=== PATIENT | male | born 1970 | race Two or more races ===

== ENCOUNTER 2020-08-14 16:54 | Inpatient (IN) | payer MEDICAID, OTHER ==
[~2020-08-14] VITALS: Ht 167.6 cm; Wt 173.2 kg
[2020-08-14] MEDS ORDERED: SODIUM CHLORIDE 0.9% 1,000 ML IVB ONE (18:15)
[2020-08-14] MEDS ORDERED: ASCORBIC ACID 500 MG TAB PO ONE (18:15)
[2020-08-14] MEDS ORDERED: ZINC SULFATE 220mg CAP or TAB PO ONE (18:15)
[2020-08-14] MEDS ORDERED: AZITHROMYCIN 500MG/ 250ML 250 ML IV ONE (18:15)
[2020-08-14 21:01] LABS: Basophils # (auto) 0 10 ^3/uL (0-0.2); Basophils % (auto) 0.3 % (0.0-2.0); Eosinophils # (auto) 0 10 ^3/uL (0-0.8); Eosinophils % (auto) 0.1 % (0.0-7.0); Hematocrit 42.1 % (41.0-53.0); Hemoglobin 13.9 g/dL (13.5-17.5); Lymphocytes # (auto) 1.4 10 ^3/uL (0.4-5.4); Lymphocytes % (auto) 32.2 % (10.0-50.0); Mean Corpuscular Volume 84.9 fL (80.0-100.0); Monocytes # (auto) 0.3 10 ^3/uL (0-1.3); Monocytes % (auto) 7.5 % (0.0-12.0); Neutrophils # (auto) 2.7 10 ^3/uL (1.6-8.6); Neutrophils % (auto) 59.9 % (37.0-80.0); Nucleated Red Blood Cells % 0.1 %; Platelet Count (auto) 180 10^3/uL (140-450); Red Blood Cells 4.96 10^6/uL (4.5-5.90); White Blood Cell 4.5 10^3/uL (4.4-10.8)
[2020-08-14 21:16] LABS: INR 0.95 (0.9-1.15); Partial Thromboplastin Time 27.4 sec (23.0-31.2)
[2020-08-14 21:26] LABS: BUN/Creatinine Ratio 13.1; Calcium 7.9 mg/dL (8.5-10.1); Potassium 3.6 mmol/L (3.5-5.1)
[2020-08-14 21:29] LABS: Bilirubin, Total 0.4 mg/dL (0.2-1.0); Total Protein 7.8 g/dL (6.4-8.2)
[2020-08-14 21:31] LABS: Lactic Acid w/Reflex 2.4 mmol/L (0.4-2.0)
[2020-08-14] MEDS ORDERED: ACETAMINOPHEN 325 MG TAB PO PRN (23:00)
[2020-08-14] MEDS ORDERED: ONDANSETRON HCL 4 MG/2 ML VIAL IV PRN (23:00)
--- NOTE | 2020-08-14 23:59 | NUR ---
MS admit from ER CONSUELO GUTHRIE admitted to tele/MS. No SBAR received from ED. Patient oriented to KASSIE RUIZ, RN primary RN, MST unit, room 234, and unit policies regarding patient care and visiting hours. Patient weighed by bed scale and encouraged to call if they need something. All questions and concerns addressed, patient verbalized understanding. PATIENT ON 2L OF OXYGEN VIA NC WITH EVNE AND UNLABORED RESPIRATIONS, NO S/S OF DISTRESS SOB OR PAIN. PATIENT ABLE TO AMBULATE INDEPENDENTLY, BED IN LOWEST LOCKED POSITION, SIDE RAILS UP X2, AND CALL LIGHT WITHIN REACH. WILL CONTINUE TO MONITOR Q1HR PRN.
[2020-08-15] VITALS (7 sets, daily range): BP systolic 101–151; BP diastolic 64–89
[2020-08-15] MEDS ORDERED: METF-370 PO (02:23)
[2020-08-15] MEDS: ALBUTEROL SULF HFA 90MCG INH 200DOSE IN SCH ×3 (06:00→21:53)
[2020-08-15] MEDS: BUDESONIDE (INHALATION) 180 MCG IH IN SCH ×2 (06:21→21:53)
[2020-08-15 06:42] LABS: Basophils # (auto) 0 10 ^3/uL (0-0.2); Basophils % (auto) 0.5 % (0.0-2.0); Eosinophils # (auto) 0 10 ^3/uL (0-0.8); Eosinophils % (auto) 0.1 % (0.0-7.0); Hematocrit 39.7 % (41.0-53.0); Hemoglobin 13.1 g/dL (13.5-17.5); Lymphocytes # (auto) 1.3 10 ^3/uL (0.4-5.4); Lymphocytes % (auto) 29.4 % (10.0-50.0); Mean Corpuscular Hemoglobin 27.8 pg (28.0-32.0); Mean Corpuscular Hgb Conc. 32.9 g/dL (32.0-36.0); Mean Corpuscular Volume 84.4 fL (80.0-100.0); Monocytes # (auto) 0.3 10 ^3/uL (0-1.3); Monocytes % (auto) 7.3 % (0.0-12.0); Neutrophils # (auto) 2.9 10 ^3/uL (1.6-8.6); Neutrophils % (auto) 62.7 % (37.0-80.0); Nucleated Red Blood Cells % 0.1 %; Platelet Count (auto) 163 10^3/uL (140-450); Red Blood Cells 4.71 10^6/uL (4.5-5.90); Red Cell Distribution Width 14.5 % (11.8-14.3); White Blood Cell 4.6 10^3/uL (4.4-10.8)
[2020-08-15 06:48] LABS: Albumin 2.7 g/dL (3.4-5.0); Calcium 7.8 mg/dL (8.5-10.1); Magnesium 2.2 mg/dL (1.6-2.6)
[2020-08-15 06:51] LABS: BUN/Creatinine Ratio 11.7; Bilirubin, Total 0.3 mg/dL (0.2-1.0); Phosphorus 3.3 mg/dL (2.5-4.90); Total Protein 6.9 g/dL (6.4-8.2)
[2020-08-15] MEDS ORDERED: ACCU-CHEK COMFORT CURVE STRIP VI ONE (07:00)
[2020-08-15] MEDS ORDERED: InsuLIN REG 1unit/0.01ml Soln (100units/ml) SC ONE (07:00)
[2020-08-15] MEDS: ZINC SULFATE 220mg CAP or TAB PO SCH (09:53)
[2020-08-15] MEDS: DexAMETHasone SOD PHOS 10MG/1ML VIAL INJ IV SCH (09:53)
[2020-08-15] MEDS: cefTRIAXone 1GM/50ML D5W 50 ML IV SCH (09:53)
[2020-08-15] MEDS: ENOXAPARIN SOD 40 MG/0.4 ML SYRINGE SC SCH (09:54)
[2020-08-15] MEDS: ASCORBIC ACID 500 MG TAB PO SCH (09:54)
[2020-08-15] MEDS ORDERED: DEXTROSE (50%) 50ML SYRG IV PRN (10:00)
--- NOTE | 2020-08-15 10:00 | NUR ---
Dr Rosenthal bedside with patient discussing plan of care. Orders received and carried out
--- NOTE | 2020-08-15 10:05 | NUR ---
Orders received from Dr Rosenthal to have patients CPAP pressure changed to 15 from 17. (Per patients request, 15 is his home setting) Spoke to RT who will update order.
--- NOTE | 2020-08-15 10:13 | NUR ---
Per Dr Rosenthal, patient also changed to tele from m/s. Order carried out
[2020-08-15] MEDS ORDERED: NITROGLYCERIN 0.4 MG SL TAB SL PRN ×2 (10:15)
[2020-08-15] MEDS ORDERED: MORPHINE SULF INJ 2 MG/ML SYRINGE 1ML IV PRN ×2 (10:15)
[2020-08-15] MEDS: ACCU-CHEK COMFORT CURVE STRIP VI SCH ×3 (12:00→22:19)
[2020-08-15] MEDS: InsuLIN REG 1unit/0.01ml Soln (100units/ml) SC SCH ×3 (12:01→22:21)
--- NOTE | 2020-08-15 12:30 | NUR ---
PAIN Patient reports back pain 3/10. Per patient, he does not want any pain medication at this time. Patient repositioned for comfort.
[2020-08-15] MEDS: SODIUM CHLOR 0.9% PF (SALINE LOCK) 10ML VIAL/SYR IV SCH ×2 (14:10→22:19)
--- NOTE | 2020-08-15 16:34 | NUR ---
Received orders from Dr Rosenthal for pain medication. Order carried out as received.
[2020-08-15] MEDS: ACETAMINOPHEN 325 MG TAB PO PRN (16:42)
[2020-08-15] MEDS: AZITHROMYCIN 500MG/ 250ML 250 ML IV SCH (17:45)
--- NOTE | 2020-08-15 20:09 | NUR ---
open note assumed care of pt upon entering room pt sitting in chair with 4L nc no distress noted or expressed. pt denies any pain. pt oriented to this nurse, updated on plan of care. pt has cpap at bedside, this nurse to page respiratory when pt is ready for bed. pt bed locked, low and 2x rails up. call light in reach, pt encouraged to call as needed. this nurse to round q1hr and prn.
--- NOTE | 2020-08-15 22:57 | NUR ---
PT RINSED OUT HIS MOUTH POST PULMICORT TX Addendum: 08/15/20 at 2257 by JANA RAMIRES RT Amended: Links added.
--- NOTE | 2020-08-15 23:53 | NUR ---
dr aldana at bedside, spoke with patient about remdesivir, to which patient agreed and this nurse received orders.
[2020-08-16 05:02] VITALS: BP 130/77
[2020-08-16 05:58] LABS: Basophils # (auto) 0 10 ^3/uL (0-0.2); Basophils % (auto) 0.1 % (0.0-2.0); Eosinophils # (auto) 0 10 ^3/uL (0-0.8); Hematocrit 40.7 % (41.0-53.0); Hemoglobin 13.3 g/dL (13.5-17.5); Lymphocytes # (auto) 0.9 10 ^3/uL (0.4-5.4); Lymphocytes % (auto) 14.8 % (10.0-50.0); Mean Corpuscular Hemoglobin 27.6 pg (28.0-32.0); Mean Corpuscular Hgb Conc. 32.7 g/dL (32.0-36.0); Mean Corpuscular Volume 84.3 fL (80.0-100.0); Monocytes # (auto) 0.4 10 ^3/uL (0-1.3); Monocytes % (auto) 6.5 % (0.0-12.0); Neutrophils # (auto) 4.8 10 ^3/uL (1.6-8.6); Neutrophils % (auto) 78.6 % (37.0-80.0); Nucleated Red Blood Cells % 0.1 %; Platelet Count (auto) 181 10^3/uL (140-450); Red Blood Cells 4.83 10^6/uL (4.5-5.90); Red Cell Distribution Width 14.8 % (11.8-14.3); White Blood Cell 6.1 10^3/uL (4.4-10.8)
[2020-08-16 06:34] LABS: BUN/Creatinine Ratio 12.8; Calcium 8.3 mg/dL (8.5-10.1); Magnesium 2.6 mg/dL (1.6-2.6)
[2020-08-16 06:43] LABS: CRP High Sensitivity 9.59 mg/dL (< 0.3)
[2020-08-16] MEDS: ACCU-CHEK COMFORT CURVE STRIP VI SCH ×4 (06:44→22:04)
[2020-08-16] MEDS: SODIUM CHLOR 0.9% PF (SALINE LOCK) 10ML VIAL/SYR IV SCH ×3 (06:44→22:01)
[2020-08-16] MEDS: InsuLIN REG 1unit/0.01ml Soln (100units/ml) SC SCH ×4 (06:48→22:03)
[2020-08-16] MEDS: ALBUTEROL SULF HFA 90MCG INH 200DOSE IN SCH ×3 (07:28→21:28)
[2020-08-16] MEDS: BUDESONIDE (INHALATION) 180 MCG IH IN SCH ×2 (07:28→21:28)
--- NOTE | 2020-08-16 07:37 | NUR ---
Opening Shift Note Assumed care of patient, awake and alert. No S/S of distress, SOB with activity, denies pain. Instructed on POC and to call for assist PRN, will continue to monitor for changes Q1hr and PRN.
[2020-08-16 09:00] VITALS: BP 147/81
[2020-08-16] MEDS: cefTRIAXone 1GM/50ML D5W 50 ML IV SCH (09:48)
[2020-08-16] MEDS: DexAMETHasone SOD PHOS 10MG/1ML VIAL INJ IV SCH (09:48)
[2020-08-16] MEDS: ZINC SULFATE 220mg CAP or TAB PO SCH (09:48)
[2020-08-16] MEDS: ENOXAPARIN SOD 40 MG/0.4 ML SYRINGE SC SCH (09:49)
[2020-08-16] MEDS: ASCORBIC ACID 500 MG TAB PO SCH (09:49)
[2020-08-16] MEDS ORDERED: PATIENTS OWN MEDICATION PO SCH (10:00)
[2020-08-16 13:00] VITALS: BP_SYST 119; BP_SYST 138; BP_DIAS 75; BP_DIAS 82
[2020-08-16 17:00] VITALS: BP 131/83
[2020-08-16] MEDS ORDERED: REMDESIVIR 200 MG in NS 210ml LOADING DOSE ADULT IV ONE (17:00)
[2020-08-16] MEDS: AZITHROMYCIN 500MG/ 250ML 250 ML IV SCH (17:01)
--- NOTE | 2020-08-16 17:02 | NUR ---
Remdesivir started, vs stable bp 138/82, p 97, reports feeling well, labs verified, will continue to monitor.
--- NOTE | 2020-08-16 19:30 | NUR ---
Opening Shift Note Received report from ana cristina Villegas RN. Assumed care of patient, awake and alert. No S/S of distress/SOB or pain. Patient on 4LNC saturating at 90%. Instructed on POC and to call for assist PRN, will continue to monitor for changes Q1hr and PRN. Bed placed in lowest position and call light within reach.
[2020-08-16 22:00] VITALS: BP 125/74
--- NOTE | 2020-08-17 03:00 | NUR ---
Patient got up and went to the bathroom and desats to 78%. Adjusted oxygen level to 6LNC and oxygen saturation went up to 89% Will monitor. Patient is also c/o chills. Temp check is 98.6. Will monitor
[2020-08-17] MEDS: ACETAMINOPHEN 325 MG TAB PO PRN ×3 (03:15→22:24)
--- NOTE | 2020-08-17 03:15 | NUR ---
Given Tylenol per request for generalized discomfort.
--- NOTE | 2020-08-17 03:45 | NUR ---
Patient's temp is 100.7. Tylenol given at 0315. Will monitor
--- NOTE | 2020-08-17 04:50 | NUR ---
Patient's temperature is 98.9. Patient is sitting at bedside on 6LNC saturating at 92%. Patient denies pain and states he is feeling better.
[2020-08-17 05:00] VITALS: BP 104/65
[2020-08-17] MEDS: BUDESONIDE (INHALATION) 180 MCG IH IN SCH ×2 (05:46→22:18)
[2020-08-17] MEDS: ALBUTEROL SULF HFA 90MCG INH 200DOSE IN SCH ×3 (05:46→22:18)
[2020-08-17] MEDS: SODIUM CHLOR 0.9% PF (SALINE LOCK) 10ML VIAL/SYR IV SCH ×3 (06:26→22:27)
[2020-08-17] MEDS: ACCU-CHEK COMFORT CURVE STRIP VI SCH ×4 (06:27→22:24)
[2020-08-17] MEDS: InsuLIN REG 1unit/0.01ml Soln (100units/ml) SC SCH ×4 (06:33→22:26)
--- NOTE | 2020-08-17 07:12 | NUR ---
Report given to ana cristina Villegas RN. Patient is resting in bed alert and awake. No distress noted, on 7LNC saturating at 90%, RT aware.
--- NOTE | 2020-08-17 07:34 | NUR ---
Opening Shift Note Assumed care of patient, awake and alert. No S/S of distress, SOB with activity, remains on 7l, denies pain. Instructed on POC and to call for assist PRN, will continue to monitor for changes Q1hr and PRN.
[2020-08-17 09:11] VITALS: BP 132/83
[2020-08-17] MEDS: cefTRIAXone 1GM/50ML D5W 50 ML IV SCH (10:02)
[2020-08-17] MEDS: DexAMETHasone SOD PHOS 10MG/1ML VIAL INJ IV SCH (10:02)
[2020-08-17] MEDS: CHOLECALCIFEROL (VITD3) 2,000 UNIT CAP PO SCH (10:02)
[2020-08-17] MEDS: ASCORBIC ACID 500 MG TAB PO SCH (10:02)
[2020-08-17] MEDS: ZINC SULFATE 220mg CAP or TAB PO SCH (10:02)
[2020-08-17] MEDS: ENOXAPARIN SOD 40 MG/0.4 ML SYRINGE SC SCH (10:03)
[2020-08-17 13:00] VITALS: BP 128/76
[2020-08-17 17:00] VITALS: BP_SYST 138; BP_SYST 156; BP_DIAS 76; BP_DIAS 89
[2020-08-17] MEDS: REMDESIVIR 100mg in NS 230ml DAILYx4DAYS (NO VENT) IV SCH (18:13)
[2020-08-17] MEDS: AZITHROMYCIN 500MG/ 250ML 250 ML IV SCH (18:16)
[2020-08-17 18:49] VITALS: BP 138/76
--- NOTE | 2020-08-17 19:30 | NUR ---
Opening Shift Note Received report from ana cristina Villegas RN. Assumed care of patient, awake and alert. No S/S of distress/SOB or pain. On 9L Oxymizer saturating at 90% Instructed on POC and to call for assist PRN, will continue to monitor for changes Q1hr and PRN. Bed placed in lowest position and call light within reach.
[2020-08-17 22:00] VITALS: BP 139/78
--- NOTE | 2020-08-17 22:18 | NUR ---
Respiratory note: PT DOES NOT WANT TO PUT CPAP ON AT THIS TIME, PT SITTING IN CHAIR
[2020-08-18 05:00] VITALS: BP 126/78
[2020-08-18] MEDS: ACCU-CHEK COMFORT CURVE STRIP VI SCH ×4 (06:34→23:45)
[2020-08-18] MEDS: SODIUM CHLOR 0.9% PF (SALINE LOCK) 10ML VIAL/SYR IV SCH ×3 (06:34→23:45)
[2020-08-18] MEDS: InsuLIN REG 1unit/0.01ml Soln (100units/ml) SC SCH ×4 (06:36→23:47)
[2020-08-18 06:45] LABS: Basophils # (auto) 0 10 ^3/uL (0-0.2); Basophils % (auto) 0.1 % (0.0-2.0); Eosinophils # (auto) 0 10 ^3/uL (0-0.8); Hematocrit 42.9 % (41.0-53.0); Hemoglobin 14.2 g/dL (13.5-17.5); Lymphocytes # (auto) 0.8 10 ^3/uL (0.4-5.4); Lymphocytes % (auto) 8.5 % (10.0-50.0); Mean Corpuscular Hemoglobin 27.6 pg (28.0-32.0); Mean Corpuscular Volume 83.7 fL (80.0-100.0); Monocytes # (auto) 0.3 10 ^3/uL (0-1.3); Monocytes % (auto) 3.1 % (0.0-12.0); Neutrophils # (auto) 8.2 10 ^3/uL (1.6-8.6); Neutrophils % (auto) 88.3 % (37.0-80.0); Platelet Count (auto) 252 10^3/uL (140-450); Red Blood Cells 5.13 10^6/uL (4.5-5.90); Red Cell Distribution Width 14.9 % (11.8-14.3); White Blood Cell 9.3 10^3/uL (4.4-10.8)
[2020-08-18] MEDS: ALBUTEROL SULF HFA 90MCG INH 200DOSE IN SCH ×3 (07:00→20:35)
[2020-08-18] MEDS: BUDESONIDE (INHALATION) 180 MCG IH IN SCH ×2 (07:00→20:35)
--- NOTE | 2020-08-18 07:00 | NUR ---
Patient is resting on the chair on 13L Oxymizer saturating at 90%. Blood sugar is 247mg/dl covered with 6 units of reg insulin. No distress noted at this time and patient denies pain.
--- NOTE | 2020-08-18 07:05 | NUR ---
Respiratory note: RT AT BEDSIDE FOR ASSESSMENT. PT ALREADY OFF CPAP, SAYS HE TOOK IT OFF AROUND 0630. PT IS SITTING UP IN CHAIR WEARING 15LPM OXYMIZER, HR 85, RR 22, SPO2 90%. ADMINISTERED MDI THERAPY, NO ADVERSE REACTIONS. PT SAYS HE IS FEELING OK AT THIS TIME. ADVISED PT TO CALL FOR RT OR NURSE WITH CALL LIGHT IF NEEDED.
[2020-08-18 07:29] LABS: Potassium 4.1 mmol/L (3.5-5.1)
--- NOTE | 2020-08-18 07:30 | NUR ---
Opening note Assumed care of patient from NOC RN. Patient is AOx4, sitting up in chair, no s/s of distress noted. Patient noted to be on 15 L Oxymizer, no s/s of sob noted. Updated patient on plan of care and patient verbalized understanding. Will continue to monitor.
[2020-08-18 07:40] LABS: BUN/Creatinine Ratio 17.6; Calcium 8.7 mg/dL (8.5-10.1); Magnesium 2.5 mg/dL (1.6-2.6)
[2020-08-18] MEDS: DexAMETHasone SOD PHOS 10MG/1ML VIAL INJ IV SCH (08:30)
[2020-08-18] MEDS: cefTRIAXone 1GM/50ML D5W 50 ML IV SCH (08:30)
[2020-08-18] MEDS: ZINC SULFATE 220mg CAP or TAB PO SCH (08:31)
[2020-08-18] MEDS: ASCORBIC ACID 500 MG TAB PO SCH (08:31)
[2020-08-18] MEDS: CHOLECALCIFEROL (VITD3) 2,000 UNIT CAP PO SCH (08:31)
[2020-08-18] MEDS: ENOXAPARIN SOD 40 MG/0.4 ML SYRINGE SC SCH (08:32)
[2020-08-18] MEDS: HYDROcodone-ACET 5/325MG TAB PO PRN (08:32)
--- NOTE | 2020-08-18 08:40 | NUR ---
O2 patient placed on 15l O2 via non-rebreather. Patient sitting at chair, no s/s of SOB or distress noted. Will notify .
--- NOTE | 2020-08-18 08:55 | NUR ---
Jaxson Rosenthal regarding patient o2 requirements. Left message and awaiting call back.
[2020-08-18 09:00] VITALS: BP 145/81
--- NOTE | 2020-08-18 09:00 | NUR ---
Physician rounding Dr. Kennedy at bedside. updated patient on plan of care and educated patient on convalescent plasma and patient verbalized understanding. New orders received, will follow through.
[2020-08-18 09:05] LABS: CRP High Sensitivity 18.7 mg/dL (< 0.3)
--- NOTE | 2020-08-18 12:29 | NUR ---
Nutrition Assessment Est energy needs 9133-1102 kcal (25-30 kcal/kg IBW 65kg) Est protein needs 65-84g (1-1.3g/kg IBW 65kg) will monitor and reassess prn. Addendum: 08/18/20 at [address] Amended: Links added.
--- NOTE | 2020-08-18 12:47 | NUR ---
Received call from Received call from Dr. Kennedy, per patient to be transferred to [facility]. Will follow through.
--- NOTE | 2020-08-18 12:50 | NUR ---
Notified transmitter engineer in charge Notified Fely regarding transfer to [facility].
[2020-08-18 13:00] VITALS: BP 144/84
--- NOTE | 2020-08-18 13:18 | NUR ---
Report Report given to [facility] BECKY Koch.
--- NOTE | 2020-08-18 13:22 | NUR ---
called Left message to Dr. Liza Funk regarding patient transfer to [facility]. Left call back information.
--- NOTE | 2020-08-18 13:25 | NUR ---
received call Received call from Dr. Liza Funk. Per MD patient is not under his care, patient is under Dr. Rosenthal. Will notify .
--- NOTE | 2020-08-18 13:40 | NUR ---
RECEIVED PT TRANSFER TO [id number], FROM COVID UNIT. PT WITH INCREASING OXYGEN DEMANDS. PT A/O X4. VERY PLEASANT, SOB WITH ANY EXERTION AND MILDLY EVEN AT REST. LUNGS CLEAR AND DIMINISHED THROUGHOUT. O2 AT 15 L VIA NRB MASK WITH VS: 98.3 (O) 85-28-88% AND 134/88. ABD SOFT WITH HYPOACTIVE BOWEL SOUNDS. LAST BM WAS EARLIER THIS AM. VOIDS VIA URINAL PER REPORT. SKIN INTACT. DENIES ANY PAIN. PT SITTING ON THE EDGE OF THE BED. Addendum: 08/18/20 at 2041 by Zee Hobbs RN TP IN ISOLATION FOR + COVID.
--- NOTE | 2020-08-18 13:46 | NUR ---
notified MD Called Dr. Rosenthal of transfer. No answer, left call back information.
--- NOTE | 2020-08-18 13:57 | NUR ---
CALLED DR. KENNEDY Pt on 15lpm NRB mask, O2 sat 85-88%. Called Dr. Kennedy and notified MD, received orders to place pt on high flow NC to maintain SPO2 at 88% or greater. Orders read back and verified. Will carry out.
--- NOTE | 2020-08-18 14:10 | NUR ---
PLACED ON HIGH FLOW O2 , PER DR BOND, AT 100% O2 WITH A 40 L FLOW.
--- NOTE | 2020-08-18 14:15 | NUR ---
O2 SAT OF 87% AND FLOW INCREASED TO 50 L FLOW B NICOLE, RT.
--- NOTE | 2020-08-18 14:15 | NUR ---
PT ON HFNC PLACED PT ON HFNC ORDERED, ON SETTINGS: 50LPM, FIO2 100%. UNIT PLUGGED INTO RED OUTLET, AMBU BAG/MASK AVAILABLE AT BEDSIDE. PT SITTING UP IN BED, TOLERATING WELL, SAYS HE FEELS BETTER WITH THE HIGH FLOW. CPAP ON STANDBY AT BEDSIDE NEEDED. ADMINISTERED MDI THERAPY, NO ADVERSE REACTIONS. RN KLEBER AT BEDSIDE AND AWARE OF CHANGES. SPO2 MAINTAINING 91%. PT AWARE TO CALL FOR RT IF NEEDED. WILL CONT TO MONITOR.
[2020-08-18 15:42] VITALS: BP 117/77
--- NOTE | 2020-08-18 17:00 | NUR ---
UNABLE TO USE URINAL, SO NOW SITTING ON BSC, BUT VOIDED LARGE AMOUNT OF YELLOW URINE ON THE FLOOR. CLEANED UP AND ASSISTED PT BACK TO THE CHAIR.
[2020-08-18] MEDS: REMDESIVIR 100mg in NS 230ml DAILYx4DAYS (NO VENT) IV SCH (17:38)
--- NOTE | 2020-08-18 18:00 | NUR ---
STARTED ON REMDESEVIR DOSE ORDERED.
--- NOTE | 2020-08-18 19:10 | NUR ---
REMDESEVIR DOSE COMPLETED . PT DUE FOR AZITHROMYCIN BUT WANTS ME TO HOOK HIM UP AFTER HE USES THE BSC. [place] [facility] [place]
[2020-08-18 20:00] VITALS: BP 117/77
--- NOTE | 2020-08-18 20:00 | NUR ---
Received report from Zee PENA. Pt stable at this time. Up in chair.
[2020-08-18] MEDS: AZITHROMYCIN 500MG/ 250ML 250 ML IV SCH (20:03)
--- NOTE | 2020-08-18 20:03 | NUR ---
REPORT REPORT GIVEN TO NICOLE CRISTINA RN.
[2020-08-18] MEDS ORDERED: THROAT LOZENGES(CEPASTAT) MT PRN (21:30)
[2020-08-19] VITALS (15 sets, daily range): BP systolic 107–147; BP diastolic 59–92
[2020-08-19 04:20] LABS: Chloride 98 mmol/L (98-107); Potassium 4.1 mmol/L (3.5-5.1); Sodium 134 mmol/L (136-145)
[2020-08-19 04:25] LABS: Albumin 2.4 g/dL (3.4-5.0); Anion Gap 8 (5-15); BUN/Creatinine Ratio 18.9; Blood Urea Nitrogen 14 mg/dL (7-18); Calcium 8.1 mg/dL (8.5-10.1); Carbon Dioxide 28 mmol/L (21-32); GFR African American 144 mL/min; GFR Non-African American 119 mL/min; Glucose 278 mg/dL (74-106)
[2020-08-19 04:59] LABS: Alanine Aminotransferase 26 U/L (16-61); Alkaline Phosphatase 57 U/L (45-117); Aspartate Aminotransferase 38 U/L (15-37); Bilirubin, Total 0.3 mg/dL (0.2-1.0); Total Protein 7.2 g/dL (6.4-8.2)
[2020-08-19] MEDS: ACCU-CHEK COMFORT CURVE STRIP VI SCH ×4 (06:27→21:51)
[2020-08-19] MEDS: SODIUM CHLOR 0.9% PF (SALINE LOCK) 10ML VIAL/SYR IV SCH ×3 (06:27→21:48)
[2020-08-19] MEDS: ALBUTEROL SULF HFA 90MCG INH 200DOSE IN SCH ×3 (06:39→22:00)
[2020-08-19] MEDS: BUDESONIDE (INHALATION) 180 MCG IH IN SCH ×2 (06:39→22:00)
[2020-08-19] MEDS: InsuLIN REG 1unit/0.01ml Soln (100units/ml) SC SCH ×4 (07:52→21:50)
--- NOTE | 2020-08-19 08:05 | NUR ---
ASSESS- PT. LYING IN BED AWAKE, ALERT AND ORIENTED TIMES FOUR. DENIES ANY PAIN OR DISCOMFORT. ON HI FLOW 65 LITERS, FIO2-100%. LUNGS CLEAR JOSE. INSPIRATORY AND EXPIRATORY, DIMINISHED THROUGHOUT. SOB WITH EXERTION. ABD. SOFT, LG., NON-TENDER. BOWEL SOUNDS ALL FOUR QUADRANTS. NO N/V. RADIAL PULSES STRONG, PALPABLE JOSE. DORSALIS PEDAL PULSES STRONG, PALPABLE JOSE. NO EDEMA. SKIN INTACT. PT. MOVES UPPER AND LOWER EXTREMITIES JOSE. WITHOUT DIFFICULTY. ON REVERSE ISOLATION AIRBORNE PRECAUTIONS FOR COVID POSITIVE.
--- NOTE | 2020-08-19 08:27 | NUR ---
Pt remained stable this shift. Tolerated hi-flow well and bipap well at night. Attempted to admin conv plasma but blood bank requires new form. Pt signed form and waiting for MD to sign. MD paged this morning to inform of need of signature to be able to infuse ordered plasma. Report given to AM shift care endorsed.
--- NOTE | 2020-08-19 08:39 | NUR ---
DR. MORALES Provider/Hospitalist at bedside. GAVE UPDATE ON PT. NEW ORDERS RECEIVED.
[2020-08-19] MEDS: ENOXAPARIN SOD 40 MG/0.4 ML SYRINGE SC SCH (09:36)
[2020-08-19] MEDS: DexAMETHasone SOD PHOS 10MG/1ML VIAL INJ IV SCH (09:36)
[2020-08-19] MEDS: ASCORBIC ACID 500 MG TAB PO SCH (09:36)
[2020-08-19] MEDS: CHOLECALCIFEROL (VITD3) 2,000 UNIT CAP PO SCH (09:36)
[2020-08-19] MEDS: ZINC SULFATE 220mg CAP or TAB PO SCH (09:37)
--- NOTE | 2020-08-19 09:47 | NUR ---
PT. SIGNED CONSENT FOR CONVALESCANT PLASMA PREVIOUSLY. PT. HAS BEEN T&S. DR. MORALES HERE THIS MORNING AND SIGNED CONSENT FOR CONVALESCANT PLASMA. STARTED 1 UNIT VIA 20 GAUGE IV LAC, PATENT, BENIGN.
--- NOTE | 2020-08-19 11:32 | NUR ---
CONVALESCANT PLASMA COMPLETED. NO ADVERSE REACTION. NO SIGNS OF FLUID OVERLOAD.
[2020-08-19] MEDS: cefTRIAXone 1GM/50ML D5W 50 ML IV SCH (11:41)
--- NOTE | 2020-08-19 14:00 | NUR ---
PT. ASSISTED TO BSC. STEADY GAIT. SOB WITH EXERTION. 02 SATS DECREASED TO THE LOW 80'S, PT. SLOWLY INCREASED TO THE UPPER 80'S. NO SIGNS OF RESP. DISTRESS. PT. VOIDED AND HAD SOFT, BROWN BM.
--- NOTE | 2020-08-19 14:15 | NUR ---
DR. QUEZADA Provider/Hospitalist at bedside.
[2020-08-19] MEDS: REMDESIVIR 100mg in NS 230ml DAILYx4DAYS (NO VENT) IV SCH (16:57)
--- NOTE | 2020-08-19 17:30 | NUR ---
PT. HAS BEEN SITTING UP IN CHAIR ALL DAY. NO SIGNS OF DISTRESS OR DISCOMFORT. O2 SATS DECREASE TO 82%-86% WHEN PT. IS EATING MEALS. RR 20'S. PT. REMAINS ON HI FLOW.
[2020-08-19] MEDS: AZITHROMYCIN 500MG/ 250ML 250 ML IV SCH (17:45)
--- NOTE | 2020-08-19 19:30 | NUR ---
Assumed care, patient sitting up in chair at bedside, A/O x 4. On hi reji 65 LPM, 100% Fio2, pulse ox 90% in no acute distress. All other vital signs stable. Call light within reach, updated on POC, all questions/concerns addressed.
[2020-08-19] MEDS: ACETAMINOPHEN 325 MG TAB PO PRN (20:52)
[2020-08-19] MEDS: INSULIN LANTUS (GLARGINE) 1 /0.01ml (100units/ml) SC SCH (21:51)
--- NOTE | 2020-08-19 22:00 | NUR ---
Patient assisted back to bed, O2 saturations dropping to high 70s with minimal exertion. Once patient in bed, saturations recovering to high 80s.
--- NOTE | 2020-08-19 22:30 | NUR ---
Patient placed on CPAP by request at ordered settings, tolerating well.
[2020-08-20] VITALS (10 sets, daily range): BP systolic 117–139; BP diastolic 73–89
[2020-08-20] MEDS: HYDROcodone-ACET 5/325MG TAB PO PRN ×2 (00:57→07:59)
[2020-08-20 03:42] LABS: Albumin 2.4 g/dL (3.4-5.0); Calcium 8.2 mg/dL (8.5-10.1); Potassium 3.8 mmol/L (3.5-5.1)
[2020-08-20 03:52] LABS: BUN/Creatinine Ratio 22.6; Bilirubin, Total 0.3 mg/dL (0.2-1.0); CRP High Sensitivity 7.14 mg/dL (< 0.3); Total Protein 6.7 g/dL (6.4-8.2)
--- NOTE | 2020-08-20 04:43 | NUR ---
Patient requesting to be placed back on Hi-Flow, RT paged.
--- NOTE | 2020-08-20 05:35 | NUR ---
Patient assisted to bedside commode upon request, this RN provided extensive education regarding how much oxygen he is on and how exerted he gets with even minimal movement. Educated patient on possibly needing a marquez catheter to avoid such exertion and frequent desaturations, patient adamantly refuses. Once back in bed, patient saturating mid 80s for approximately 30 minutes. RT paged.
[2020-08-20] MEDS: SODIUM CHLOR 0.9% PF (SALINE LOCK) 10ML VIAL/SYR IV SCH ×3 (05:45→20:57)
[2020-08-20] MEDS: InsuLIN REG 1unit/0.01ml Soln (100units/ml) SC SCH ×4 (06:14→20:21)
[2020-08-20] MEDS: ACCU-CHEK COMFORT CURVE STRIP VI SCH ×4 (06:15→20:20)
--- NOTE | 2020-08-20 06:43 | NUR ---
Patient adamant about getting up into chair, more anxious at this time; explained to patient once again the high risk of desaturation with activity but patient continues to refuse to listen to RN instruction. Up in chair at this time. Continue to monitor.
[2020-08-20] MEDS: ALBUTEROL SULF HFA 90MCG INH 200DOSE IN SCH ×3 (07:03→20:56)
[2020-08-20] MEDS: BUDESONIDE (INHALATION) 180 MCG IH IN SCH ×2 (07:03→20:56)
--- NOTE | 2020-08-20 07:15 | NUR ---
Assumed care of pt., report received per BECKY Tello. No distress noted, pt. attached to monitor and reading sinus rhythm /s ectopy, will cont.to monitor for any changes, pt. OOB up to chair, call schultz in reach, assessment ongoing.
[2020-08-20] MEDS ORDERED: ENOXAPARIN SOD 100 MG/1 ML SYRINGE SC SCH (10:00)
[2020-08-20] MEDS: cefTRIAXone 1GM/50ML D5W 50 ML IV SCH (10:29)
[2020-08-20] MEDS: ASPirin-EC 325mg tab PO SCH (10:29)
[2020-08-20] MEDS: ZINC SULFATE 220mg CAP or TAB PO SCH (10:29)
[2020-08-20] MEDS: CHOLECALCIFEROL (VITD3) 2,000 UNIT CAP PO SCH (10:29)
[2020-08-20] MEDS: ASCORBIC ACID 500 MG TAB PO SCH (10:29)
[2020-08-20] MEDS: DexAMETHasone SOD PHOS 10MG/1ML VIAL INJ IV SCH (10:29)
--- NOTE | 2020-08-20 14:34 | NUR ---
assessment Patient is a 50 year old male who is in [facility] covid positive. Per patients praveena Peralta [phone] prior to admission patient lived home with him and his Jeannine and was independent. Patient has a fww for home use. Patients PCP is Dr Coty Murdock. Fabian informed me patient was admitted for shortness of breath, fever and cough. Per Fabian patient has good family support. I informed Fabian I will continue to monitor patient and follow up as appropriate for any post discharge needs. Fabian verbalized understanding and agreed to discharge plan home. Addendum: 08/20/20 at 1440 by Judith ANN Amended: Links added.
[2020-08-20] MEDS: REMDESIVIR 100mg in NS 230ml DAILYx4DAYS (NO VENT) IV SCH (17:09)
--- NOTE | 2020-08-20 19:20 | NUR ---
No distress noted, pt. report given to BECKY Rosas. NO distress noted, pt. care assumed per NOC shift RN. Day shift RN relinquished care and signed off.
[2020-08-20] MEDS: AZITHROMYCIN 500MG/ 250ML 250 ML IV SCH (19:33)
[2020-08-20] MEDS: INSULIN LANTUS (GLARGINE) 1 /0.01ml (100units/ml) SC SCH (20:25)
--- NOTE | 2020-08-20 21:00 | NUR ---
URINATION PATIENTS HE NEEDS TO USE RESTROOM. PLACED PATIENT ON BSC. PATIENT URINATED BUT MISSED THE BSC AND URINATED ALL OVER THE FLOOR. PATIENT SOB WITH EXERTION WITH O2SAT 79% ON HIGH AHMET 65L FI02 100%. INFORMED PATIENT DEEP BREATHE EXERCISES TO INCREASE O2 SAT AND RECOVER. PATIENT CURRENT O2 SAT 88%. INFORMED PATIENT HAS ORDER FOR GUAN, STRESSED THE IMPORTANCE THAT HIS BODY DEMANDING MORE OXYGEN WITH EXERTION ESPECIALLY WITH COVID. PATIENT HAS ORDERS FOR GUAN TO DECREASE PHYSICAL DEMANDS DURING URINATION. PATIENT VERBALIZES UNDERSTANDING BUT REFUSES TO HAVE GUAN PLACED.
--- NOTE | 2020-08-20 22:20 | NUR ---
CPAP PATIENT IS READY FOR BED AND REQUESTS TO BE PUT ON CPAP, RT NOTIFIED AND PLACED PATIENT ON CPAP. FIO2 100% WITH O2 SAT 93%. PATIENT IN NO APPARENT RESPIRATORY DISTRESS OR SOB. TOLERATING WELL WILL CONTINUE TO MONITOR PATIENT.
[2020-08-21] VITALS (7 sets, daily range): BP systolic 112–136; BP diastolic 71–81
[2020-08-21 03:18] LABS: Hematocrit 44.2 % (41.0-53.0); Hemoglobin 14.3 g/dL (13.5-17.5); Mean Corpuscular Hgb Conc. 32.2 g/dL (32.0-36.0); Mean Corpuscular Volume 83.8 fL (80.0-100.0); Platelet Count (auto) 314 10^3/uL (140-450); Red Blood Cells 5.28 10^6/uL (4.5-5.90); Red Cell Distribution Width 14.7 % (11.8-14.3); White Blood Cell 9.5 10^3/uL (4.4-10.8)
[2020-08-21 03:23] LABS: Albumin 2.5 g/dL (3.4-5.0); Calcium 8.7 mg/dL (8.5-10.1); Potassium 4.2 mmol/L (3.5-5.1)
[2020-08-21 03:24] LABS: Basophils % (manual) 0 (0.0-2.0); Eosinophils % (manual) 0 (0-7); Metamyelocytes % 0; Myelocytes % 0; Promyelocytes % 0; Reactive Lymphocytes 0
[2020-08-21 03:25] LABS: Blast Cells 0
[2020-08-21 03:32] LABS: BUN/Creatinine Ratio 18.3; Bilirubin, Total 0.4 mg/dL (0.2-1.0); CRP High Sensitivity 7.81 mg/dL (< 0.3); Total Protein 7.2 g/dL (6.4-8.2)
[2020-08-21 04:26] LABS: Band Neutrophils % (manual) 2; Lymphocytes % (manual) 15 (10.0-50.0); Monocytes % (manual) 2 (0-12)
[2020-08-21] MEDS: ALBUTEROL SULF HFA 90MCG INH 200DOSE IN SCH ×3 (05:40→22:12)
[2020-08-21] MEDS: BUDESONIDE (INHALATION) 180 MCG IH IN SCH ×2 (05:41→22:11)
[2020-08-21] MEDS: ACCU-CHEK COMFORT CURVE STRIP VI SCH ×4 (06:34→22:22)
[2020-08-21] MEDS: SODIUM CHLOR 0.9% PF (SALINE LOCK) 10ML VIAL/SYR IV SCH ×3 (06:34→22:42)
[2020-08-21] MEDS: InsuLIN REG 1unit/0.01ml Soln (100units/ml) SC SCH ×4 (06:37→22:41)
--- NOTE | 2020-08-21 08:00 | NUR ---
Marquez catheter insertion Patient assessed and determined to be in need of marquez catheter. Order obtained from MD. Patient educated on catheter and reason for insertion. All questions answered. Marquez catheter 16 guage Chinese inserted with clean sterile technique. Patient tolerated well.
[2020-08-21] MEDS ORDERED: HYDROcodone-ACET 5/325MG TAB PO PRN (09:30)
[2020-08-21] MEDS ORDERED: MORPHINE SULF INJ 2 MG/ML SYRINGE 1ML IV PRN (09:30)
--- NOTE | 2020-08-21 09:40 | NUR ---
UNABLE TO GO TO CT AT THIS TIME. TALKED WITH RADIOLOGY STAFF. INFORMED THEM THAT PATIENT IS ON 100% FIO2 AT 65 L OF O2 AT THIS TIME. RADIOLOGY STAFF INFORMED ON PT'S HEIGHT, WEIGHT AND GIRTH. PATIENT IS UNABLE TO FIT IN OUT CT SCANNER PER RADIOLOGY STAFF. WILL INFORM DR. ANABELLE MEJÍA. HOLD ON CT AT THIS TIME.
[2020-08-21] MEDS ORDERED: ENOXAPARIN SOD 100 MG/1 ML SYRINGE SC SCH (09:45)
[2020-08-21] MEDS: ASPirin-EC 325mg tab PO SCH (11:15)
[2020-08-21] MEDS: ZINC SULFATE 220mg CAP or TAB PO SCH (11:15)
[2020-08-21] MEDS: DexAMETHasone SOD PHOS 10MG/1ML VIAL INJ IV SCH (11:15)
[2020-08-21] MEDS: ASCORBIC ACID 500 MG TAB PO SCH (11:15)
[2020-08-21] MEDS: CHOLECALCIFEROL (VITD3) 2,000 UNIT CAP PO SCH (11:15)
[2020-08-21] MEDS: cefTRIAXone 1GM/50ML D5W 50 ML IV SCH (11:16)
--- NOTE | 2020-08-21 12:17 | NUR ---
Nutrition Followup Note Wt 177kg Pt is covid positive in covid isolation in [facility]. Pt is with a Cardiac 2g Na diet with a good appetite aeb pt with 100% po intake x 2 days per Rn note Est energy needs 8225-6385 kcal (25-30 kcal/kg IBW 65kg) Est protein needs 65-84g (1-1.3g/kg IBW 65kg) will monitor and reassess prn. Labs: Na 135L, GLUC 164H, Alb 2.5L BM: Pt with 2 BMs 08/20 per RN note Skin: BS 19 low risk, full details in home health aide caregiver note PES: Obesity r/t caloric intake in excess of needs aeb pt with a BMI of 62.0kg/m2 Comments 1) Continue to monitor po intake, labs, skin 2) refer pt to [facility] on DC 3) Continue current plan of care Expected Outcomes/Goals: 1) pt po intake >75% 2) pt will maintain wt while in hospital 3) f/u 3-5 days
--- NOTE | 2020-08-21 15:00 | NUR ---
DR. AHN AT BEDSIDE:ORDERS MD UPDATED ON PT'S CURRENT STATUS, LABS AND POC FOR TODAY. ORDERS GIVEN AND TO BE CARRIED OUT. INFORMED MD ON CT SCAN AND THAT WE ARE UNABLE TO DO TESTING AT THIS TIME. MD VERBALIZE UNDERSTANDING. CONTINUE CARE.
--- NOTE | 2020-08-21 15:30 | NUR ---
DR. SHIPLEY AT BEDSIDE: UPDATE MD UPDATED ON PT'S CURRENT STATUS,LABS AND POC FOR TODAY. MD WANTING TO CONTINUE LOVENOX AT THIS TIME. SEE ORDERS GIVEN . CONTINUE CARE.
[2020-08-21] MEDS: AZITHROMYCIN 500MG/ 250ML 250 ML IV SCH (17:13)
--- NOTE | 2020-08-21 18:14 | NUR ---
Respiratory note: RECEIVED PT ON HFNC UNIT, CHECK DONE FROM PTS ROOM DOOR DUE TO COVID ISOLATION PRECAUTIONS. HFNC UNIT CONNECTED TO RED OUTLET, O2 AND MEDICAL AIR WALL SOURCE. AMBU BAG AND MASK AT BEDSIDE..NO S/S OF DISTRESS NOTED. PT SITTING UP IN BED EATING AT THIS TIME. WILL CONTINUE TO MONITOR.
[2020-08-21] MEDS ORDERED: APIXABAN 5 MG TAB PO SCH (22:00)
--- NOTE | 2020-08-21 22:00 | NUR ---
Respiratory note: AT BEDSIDE FOR MDI AND DPI TX, TX GIVEN WITHOUT INCIDENT. PT REQUESTING TO BE PLACED ON CPAP AT THI S TIME. CPAP PLACED NO BREAKDOWN NOTED PRIOR TO MASK PLACEMENT. CPAP EQUIPTMENT CONNECTED TO RED OUTLET AND O2 SOURCE ALARMS ARE SET AND AUDIBLE. AMBU BAG AND MASK AT BEDSIDE. BS ARE DIMINISHED T/O. WILL COMMUNICATED RN OF PLACEMENT.
[2020-08-21] MEDS: ENOXAPARIN SOD 120 MG/0.8 ML SYRINGE SC SCH (22:42)
[2020-08-21] MEDS: INSULIN LANTUS (GLARGINE) 1 /0.01ml (100units/ml) SC SCH (22:42)
[2020-08-22] VITALS (11 sets, daily range): BP systolic 92–118; BP diastolic 44–77
--- NOTE | 2020-08-22 01:58 | NUR ---
Respiratory note: ROUTINE CPAP CHECK DONE FROM PTS ROOM DOOR DUE TO COVID ISOLATION PRECAUTIONS. NO CHANGES MADE WILL CONTINUE TO MONITOR.
--- NOTE | 2020-08-22 03:15 | NUR ---
PATIENT STATES HE WANTS TO BE TAKEN OFF CPAP AND PLACED ON HIGH AHMET TO BRUSH HIS TEETH. PAGED RT.
[2020-08-22 03:52] LABS: Albumin 2.4 g/dL (3.4-5.0); Calcium 8.7 mg/dL (8.5-10.1); Potassium 4.3 mmol/L (3.5-5.1)
[2020-08-22 03:55] LABS: BUN/Creatinine Ratio 15.5; Bilirubin, Total 0.5 mg/dL (0.2-1.0); Total Protein 6.8 g/dL (6.4-8.2)
[2020-08-22 03:57] LABS: INR 1.07 (0.9-1.15); Partial Thromboplastin Time 28.6 sec (23.0-31.2)
--- NOTE | 2020-08-22 04:17 | NUR ---
DESATURATION PATIENT ON HIGH AHMET 65L @ 100% DESATURATES INTO THE 70S. ENCOURAGED PATIENT TO DEEP BREATHE EXERCISES. PATIENT O2SAT ONLY COMES UP TO 84% ON CURRENT HIGH AHMET SETTINGS AND PATIENT STILL SOB. PAGED RT TO PLACE PATIENT BACK ON BIPAP. RT PLACED PATIENT BACK ON BIPAP AND O2SAT 89%. PATIENT MORE RELAXED AND TOLERATING IT WELL.
[2020-08-22] MEDS: ACCU-CHEK COMFORT CURVE STRIP VI SCH ×4 (05:54→21:23)
[2020-08-22] MEDS: SODIUM CHLOR 0.9% PF (SALINE LOCK) 10ML VIAL/SYR IV SCH ×3 (05:55→21:54)
[2020-08-22] MEDS: InsuLIN REG 1unit/0.01ml Soln (100units/ml) SC SCH ×4 (06:12→21:53)
[2020-08-22] MEDS: ALBUTEROL SULF HFA 90MCG INH 200DOSE IN SCH ×2 (06:50→14:05)
[2020-08-22] MEDS: BUDESONIDE (INHALATION) 180 MCG IH IN SCH (06:50)
--- NOTE | 2020-08-22 06:55 | NUR ---
HIGH AHMET RT PLACED PATIENT ON HIGH AHMET 70L @ 100% WITH SATURATION 88%
--- NOTE | 2020-08-22 07:45 | NUR ---
OPENING SHIFT NOTE OPENING SHIFT NOTE Received report from NOC RNAlison. Assumed care of patient. Patient on Novel Respiratory Isolation for COVID-19. Patient is A&Ox4, denies pain, has no s/s of distress noted. Patient is currently on high flow oxygen 70L 100% with O2 sats in the high 80s. Goal is to keep sats >88%. Patient with PIV #20 LAC patent. Patient with marquez draining to gravity clear yellow UOP. Bed in lowest position, rails x3 up and call light within reach. Updated on plan of care. Will continue to monitor.
[2020-08-22] MEDS: ASPirin-EC 325mg tab PO SCH (10:57)
[2020-08-22] MEDS: DexAMETHasone SOD PHOS 10MG/1ML VIAL INJ IV SCH (10:57)
[2020-08-22] MEDS: cefTRIAXone 1GM/50ML D5W 50 ML IV SCH (10:57)
[2020-08-22] MEDS: ZINC SULFATE 220mg CAP or TAB PO SCH (10:57)
[2020-08-22] MEDS: ASCORBIC ACID 500 MG TAB PO SCH (10:58)
[2020-08-22] MEDS: ENOXAPARIN SOD 120 MG/0.8 ML SYRINGE SC SCH ×2 (10:58→21:54)
[2020-08-22] MEDS: CHOLECALCIFEROL (VITD3) 2,000 UNIT CAP PO SCH (10:58)
--- NOTE | 2020-08-22 12:15 | NUR ---
ACTIVITY Assist patient up to BSC with standby assist. Patient remains on high flow O2 at 70L 100%. O2 sats dropped to high 70s, but recovered back to high 80s once seated on commode. Once patient finished, was able with assist return to bed with standby assist. O2 sats in the high 80s after activity. Patient returned baseline approximately five minutes after returning to bed.
[2020-08-22] MEDS: POTASSIUM CHL 20 Meq TABLET PO SCH (14:30)
--- NOTE | 2020-08-22 14:45 | NUR ---
MD Dr Barajas at bedside to see patient. Orders received.
[2020-08-22] MEDS: BUMETANIDE 2.5mg/10ml (0.25 mg/ml) INJ IV SCH (18:13)
[2020-08-22] MEDS: AZITHROMYCIN 500MG/ 250ML 250 ML IV SCH (18:13)
--- NOTE | 2020-08-22 19:19 | NUR ---
END OF SHIFT NOTE Report given to NOC RNAlison. Endorsed care of patient.
[2020-08-22] MEDS: INSULIN LANTUS (GLARGINE) 1 /0.01ml (100units/ml) SC SCH (21:54)
[2020-08-23] VITALS (8 sets, daily range): BP systolic 111–135; BP diastolic 70–86
[2020-08-23] MEDS: BUDESONIDE (INHALATION) 180 MCG IH IN SCH ×3 (00:04→22:00)
[2020-08-23] MEDS: ALBUTEROL SULF HFA 90MCG INH 200DOSE IN SCH ×4 (00:04→22:00)
[2020-08-23 03:39] LABS: Basophils # (auto) 0 10 ^3/uL (0-0.2); Basophils % (auto) 0.3 % (0.0-2.0); Eosinophils # (auto) 0.1 10 ^3/uL (0-0.8); Eosinophils % (auto) 0.8 % (0.0-7.0); Hematocrit 46.3 % (41.0-53.0); Hemoglobin 15.4 g/dL (13.5-17.5); Lymphocytes # (auto) 1.4 10 ^3/uL (0.4-5.4); Lymphocytes % (auto) 10.7 % (10.0-50.0); Mean Corpuscular Hemoglobin 28.9 pg (28.0-32.0); Mean Corpuscular Hgb Conc. 33.2 g/dL (32.0-36.0); Mean Corpuscular Volume 87.1 fL (80.0-100.0); Monocytes # (auto) 0.5 10 ^3/uL (0-1.3); Monocytes % (auto) 4.2 % (0.0-12.0); Neutrophils # (auto) 10.9 10 ^3/uL (1.6-8.6); Nucleated Red Blood Cells % 0.1 %; Platelet Count (auto) 218 10^3/uL (140-450); Red Blood Cells 5.32 10^6/uL (4.5-5.90); Red Cell Distribution Width 15.6 % (11.8-14.3)
[2020-08-23 03:57] LABS: Calcium 8.6 mg/dL (8.5-10.1); Potassium 3.9 mmol/L (3.5-5.1)
[2020-08-23 03:59] LABS: BUN/Creatinine Ratio 18.3
[2020-08-23] MEDS: ACCU-CHEK COMFORT CURVE STRIP VI SCH ×4 (05:13→22:33)
[2020-08-23] MEDS: SODIUM CHLOR 0.9% PF (SALINE LOCK) 10ML VIAL/SYR IV SCH ×3 (05:13→22:33)
[2020-08-23] MEDS: InsuLIN REG 1unit/0.01ml Soln (100units/ml) SC SCH ×4 (05:15→22:00)
--- NOTE | 2020-08-23 07:00 | NUR ---
Report from Alison PENA Patient on high flow 70L FIO2 100%. Patient awake in bed, has not been sleeping well with CPAP at night d/t shape and size of face mask and the oral care needed while he is on it. Patient requests use of his own machine at night for sleep apnea. AO x4, moves all extremities though d/t obesity is mostly immobile in the bed and cannot prone. Follows commands. Calm. Patient has RR of 30 but feels like he is breathing fine. Patient states he feels anxious and becomes diaphoretic most evenings and would like some plan to assist with those times. RN will discuss CPAP during days, shaving vergara to help with need for such a tight mask, and possible ativan for anxiety. RN will discuss with wound care the need for a larger bed and see if there is one available. Will continue to monitor.
--- NOTE | 2020-08-23 07:30 | NUR ---
RN bedside Patient awake, alert and reports 0/10 pain.
--- NOTE | 2020-08-23 08:15 | NUR ---
RN bedside Patient up to commode, large BM, soft and formed.
--- NOTE | 2020-08-23 09:14 | NUR ---
BARIATRIC AIR BED: Bariatric Air Bed ordered at [facility] 08/23/20 @ 1512, Reference# [id number]. Call Mary at [phone] if needed to follow up
--- NOTE | 2020-08-23 09:30 | NUR ---
RN bedside Assist patient with oral care, administering medications. Patient teaching regarding disease process.
[2020-08-23] MEDS: cefTRIAXone 1GM/50ML D5W 50 ML IV SCH (10:28)
[2020-08-23] MEDS: DexAMETHasone SOD PHOS 10MG/1ML VIAL INJ IV SCH (10:28)
[2020-08-23] MEDS: BUMETANIDE 2.5mg/10ml (0.25 mg/ml) INJ IV SCH (10:28)
[2020-08-23] MEDS: ENOXAPARIN SOD 120 MG/0.8 ML SYRINGE SC SCH ×2 (10:29→22:33)
[2020-08-23] MEDS: POTASSIUM CHL 20 Meq TABLET PO SCH (10:29)
[2020-08-23] MEDS: ASCORBIC ACID 500 MG TAB PO SCH (10:29)
[2020-08-23] MEDS: ZINC SULFATE 220mg CAP or TAB PO SCH (10:29)
[2020-08-23] MEDS: ASPirin-EC 325mg tab PO SCH (10:29)
[2020-08-23] MEDS: CHOLECALCIFEROL (VITD3) 2,000 UNIT CAP PO SCH (10:29)
--- NOTE | 2020-08-23 11:06 | NUR ---
Patient up to chair Patient on high flow, up to chair. Calm.
--- NOTE | 2020-08-23 12:00 | NUR ---
RN bedside Patient needs water and is asking for jello. Patient states he feels better when he is out of the chair and sitting upright.
--- NOTE | 2020-08-23 13:10 | NUR ---
RN bedside Patient up in bed for lunch, awake, alert and oriented. Patient teaching regarding disease process and transmission facts regarding patients family.
--- NOTE | 2020-08-23 14:01 | NUR ---
RN bedside Patient up to bedside commode. Large brown BM. Then up to chair. Patient needs non rebreather at that same time as high flow to recover from movement.
--- NOTE | 2020-08-23 15:10 | NUR ---
RN bedside Patient up to side of bed, asking for crackers.
--- NOTE | 2020-08-23 17:29 | NUR ---
RN bedside Patient now on albumin at this time. Levophed restarted after fluid bolus and before albumin was started.
--- NOTE | 2020-08-23 17:30 | NUR ---
BSC [id number]
--- NOTE | 2020-08-23 18:30 | NUR ---
RN bedside Oral care competed. Patient getting reading for new bed.
[2020-08-23] MEDS: AZITHROMYCIN 500MG/ 250ML 250 ML IV SCH (18:35)
--- NOTE | 2020-08-23 18:42 | NUR ---
END OF SHIFT Patient encouraged to spend the day upright in chair, saturation levels and work of breathing decreased averaging 82-88%, non labored. Patient calm with no signs of respiratory distress unless he moved from bed to bedside commode, where RN gave patient additional help with non rebreather. Urine output of 1800 ml clear yellow urine. RN ordered new bed for patient, will change out at end of shift with P.M. RN. Patient teaching regarding disease process, plan of care and medications.
--- NOTE | 2020-08-23 20:00 | NUR ---
SHIFT OPENING NOTE RECEIVED PATIENT AWAKE, ALERT AND ORIENTED X4. NO SOB, DISTRESS OR PAIN NOTED. ON HIGH FLOW NC 60 L, 100% FI02 POX 88%. GUAN CATH DRAINING YELLOW URINE TO GRAVITY. EXEL CARE CARE PLACED INSIDE THE ROOM. PATIENT ASSISTED ONTO NEW BED. PHYSICAL ASSESSMENT COMPLETED, SEE INTERVENTIONS. INSTRUCTED ON POC AND TO CALL FOR ASSIST NEEDED. BED IS IN THE LOWEST POSITION WITH SIDE RAILS UP X2. CALL LIGHT IS WITHIN REACH.
[2020-08-23] MEDS: INSULIN LANTUS (GLARGINE) 1 /0.01ml (100units/ml) SC SCH (22:34)
[2020-08-24] VITALS (11 sets, daily range): BP systolic 100–135; BP diastolic 56–82
--- NOTE | 2020-08-24 01:00 | NUR ---
ROUNDS PATIENT IS QUIETLY LAYING IN BED SLEEPING. ON CPAP. NO DISTRESS, SOB OR PAIN NOTED. VS STABLE. WILL CONTINUE TO CLOSELY MONITOR.
[2020-08-24] MEDS: SODIUM CHLOR 0.9% PF (SALINE LOCK) 10ML VIAL/SYR IV SCH ×3 (06:03→22:44)
[2020-08-24] MEDS: ACCU-CHEK COMFORT CURVE STRIP VI SCH ×4 (06:03→22:00)
--- NOTE | 2020-08-24 06:30 | NUR ---
IV insertion IV access obtained, via clean sterile technique by inserting [20] gauge catheter at [LFA] after [1] attempt(s). IV secured properly. No trauma to site. Patient tolerated well. NOTE: LEFT AC IV REMOVED DUE TO REDNESS AND TENDERNESS.
[2020-08-24] MEDS: InsuLIN REG 1unit/0.01ml Soln (100units/ml) SC SCH ×4 (06:32→22:00)
[2020-08-24] MEDS: BUDESONIDE (INHALATION) 180 MCG IH IN SCH ×2 (07:14→22:00)
[2020-08-24] MEDS: ALBUTEROL SULF HFA 90MCG INH 200DOSE IN SCH ×3 (07:14→22:00)
--- NOTE | 2020-08-24 07:30 | NUR ---
END OF SHIFT REPORT GIVEN AND CARE ENDORSED TO NICOLE PNEA.
--- NOTE | 2020-08-24 09:30 | NUR ---
DR AHN AT BEDSIDE DISCUSSED PLAN OF CARE WITH PATIENT.
--- NOTE | 2020-08-24 09:50 | NUR ---
BEDSIDE COMMODE PATIENT ABLE TO TRANSFER TO BEDSIDE COMMODE INDEPENDENTLY, RN STANDBY ASSIST ONLY.
[2020-08-24] MEDS: DexAMETHasone SOD PHOS 10MG/1ML VIAL INJ IV SCH (10:44)
[2020-08-24] MEDS: BUMETANIDE 2.5mg/10ml (0.25 mg/ml) INJ IV SCH (10:44)
[2020-08-24] MEDS: cefTRIAXone 1GM/50ML D5W 50 ML IV SCH (10:45)
--- NOTE | 2020-08-24 10:49 | NUR ---
MIDLINE RN AT BEDSIDE
--- NOTE | 2020-08-24 11:02 | NUR ---
DR SHIPLEY AT BEDSIDE DISCUSSED PATIENTS PLAN OF CARE, NEW ORDERS RECEIVED
[2020-08-24] MEDS: ENOXAPARIN SOD 120 MG/0.8 ML SYRINGE SC SCH ×2 (11:30→22:00)
[2020-08-24] MEDS: ASPirin-EC 325mg tab PO SCH (11:30)
[2020-08-24] MEDS: CHOLECALCIFEROL (VITD3) 2,000 UNIT CAP PO SCH (11:30)
[2020-08-24] MEDS: ASCORBIC ACID 500 MG TAB PO SCH (11:30)
[2020-08-24] MEDS: ZINC SULFATE 220mg CAP or TAB PO SCH (11:30)
[2020-08-24] MEDS: POTASSIUM CHL 20 Meq TABLET PO SCH (11:30)
--- NOTE | 2020-08-24 11:40 | NUR ---
Midline Placement: Patient educated on need for midline placement. All risks and benefits explained and all questions and concerns addresses prior to procedure. 18g/10 cm midline inserted via right basilic vein using Ultrasound. Sterile technique utilized. Blood return obtained from the single lumen and flushed easily with NS using proper technique. Midline secured with saline lock; biodisc and occlusive dressing applied. Primary RN Maria C notified. Midline lot # [id number]
--- NOTE | 2020-08-24 12:58 | NUR ---
Nutrition Followup Note Wt 174.2 kg Pt is covid positive in covid isolation in [facility]. Pt is with a Cardiac 2g Na/CCHO 60g diet with a good appetite aeb pt with 100% po intake per Rn note Est energy needs 8369-5142 kcal (25-30 kcal/kg IBW 65kg) Est protein needs 65-84g (1-1.3g/kg IBW 65kg) will monitor and reassess prn. Labs: GLUC 261 H, Alb 2.4 L BM: Pt with 1 BM 08/24 per RN note Skin: BS 19 low risk, full details in animal care worker note PES: Obesity r/t caloric intake in excess of needs aeb pt with a BMI of 62.0kg/m2 Comments Will F/U in 3-5 days 1) Continue to monitor po intake, labs, skin 2) refer pt to OPD on DC 3) Continue current plan of care Expected Outcomes/Goals: 1) pt po intake >75% 2) pt will maintain wt while in hospital 3) f/u 3-5 days
[2020-08-24] MEDS: AZITHROMYCIN 500MG/ 250ML 250 ML IV SCH (18:53)
--- NOTE | 2020-08-24 20:00 | NUR ---
Opening Shift Note: Neuro: A&Ox4, resting in the chair; baseline he ambulates independently with a cane prn; currently SBA pivot to the BSC. Cardio: NSR 80s; SBPs 100s-110s; pulses palpable; no pitting edema; BLE nonpitting edema. Resp: currently on high flow 70L/100 % FiO2; PRN CPAP at night; does not wear at home; anterior lung sounds clear/diminished in the bases; posterior lung sounds diminished throughout; cough is dry/nonproductive. GI: low NA diet; BS present; last BM 08/24/20. : marquez inserted on 08/21/20: light brian/clear. Skin: intact no open wounds; small bruising noted to abdomen from lovenox injections. IVs: left wrist/forearm 20 g IID inserted on 08/23/20; RUE 18 g midline inserted on 08/24/20. Patient is COVID positive and all precautions are in place. Pending COVID lab studies/CMP/CBC/ABG/CXR in AM. Echo is pending for SOB but can't be completed at this time related to positive COVID status. Will continue to round prn.
[2020-08-24] MEDS: INSULIN LANTUS (GLARGINE) 1 /0.01ml (100units/ml) SC SCH (22:00)
[2020-08-25] VITALS (9 sets, daily range): BP systolic 100–113; BP diastolic 53–74
[2020-08-25 05:01] LABS: Hematocrit 45.6 % (41.0-53.0); Hemoglobin 15.1 g/dL (13.5-17.5); Mean Corpuscular Hgb Conc. 33.2 g/dL (32.0-36.0); Mean Corpuscular Volume 84.2 fL (80.0-100.0); Platelet Count (auto) 339 10^3/uL (140-450); Red Blood Cells 5.42 10^6/uL (4.5-5.90); White Blood Cell 13.9 10^3/uL (4.4-10.8)
[2020-08-25 05:08] LABS: Albumin 2.4 g/dL (3.4-5.0); Calcium 8.7 mg/dL (8.5-10.1); Potassium 3.8 mmol/L (3.5-5.1)
[2020-08-25 05:16] LABS: BUN/Creatinine Ratio 23.2; Bilirubin, Total 0.5 mg/dL (0.2-1.0); CRP High Sensitivity 6.3 mg/dL (< 0.3); Total Protein 7.7 g/dL (6.4-8.2)
[2020-08-25 05:25] LABS: Band Neutrophils % (manual) 0; Basophils % (manual) 0 (0.0-2.0); Blast Cells 0; Eosinophils % (manual) 0 (0-7); Myelocytes % 0; Promyelocytes % 0; Reactive Lymphocytes 0
[2020-08-25] MEDS: SODIUM CHLOR 0.9% PF (SALINE LOCK) 10ML VIAL/SYR IV SCH ×3 (05:37→21:42)
[2020-08-25] MEDS: BUDESONIDE (INHALATION) 180 MCG IH IN SCH ×2 (06:33→22:00)
[2020-08-25] MEDS: ALBUTEROL SULF HFA 90MCG INH 200DOSE IN SCH ×3 (06:33→22:00)
[2020-08-25 06:59] LABS: Lymphocytes % (manual) 11 (10.0-50.0); Metamyelocytes % 1; Monocytes % (manual) 3 (0-12)
[2020-08-25] MEDS: ACCU-CHEK COMFORT CURVE STRIP VI SCH ×4 (07:00→21:44)
[2020-08-25] MEDS: InsuLIN REG 1unit/0.01ml Soln (100units/ml) SC SCH ×4 (07:00→21:42)
[2020-08-25] MEDS: ENOXAPARIN SOD 120 MG/0.8 ML SYRINGE SC SCH ×2 (10:00→21:44)
[2020-08-25] MEDS: ASPirin-EC 325mg tab PO SCH (10:00)
[2020-08-25] MEDS: ASCORBIC ACID 500 MG TAB PO SCH (10:00)
[2020-08-25] MEDS: ZINC SULFATE 220mg CAP or TAB PO SCH (10:00)
[2020-08-25] MEDS: CHOLECALCIFEROL (VITD3) 2,000 UNIT CAP PO SCH (10:00)
[2020-08-25] MEDS: POTASSIUM CHL 20 Meq TABLET PO SCH (10:00)
[2020-08-25] MEDS: DexAMETHasone SOD PHOS 10MG/1ML VIAL INJ IV SCH (11:16)
[2020-08-25] MEDS: cefTRIAXone 1GM/50ML D5W 50 ML IV SCH (11:16)
[2020-08-25] MEDS: BUMETANIDE 2.5mg/10ml (0.25 mg/ml) INJ IV SCH (11:16)
[2020-08-25] MEDS: AZITHROMYCIN 500MG/ 250ML 250 ML IV SCH (17:52)
--- NOTE | 2020-08-25 19:45 | NUR ---
Opening Shift Note: Neuro: A&Ox4, resting in the chair; baseline he ambulates independently with a cane prn; currently SBA pivot to the BSC. Cardio: NSR 90s; SBPs 100s-110s; pulses palpable; no pitting edema; BLE nonpitting edema. Resp: currently on high flow 55L/90 % FiO2; PRN CPAP at night; does not wear O2 at home; anterior lung sounds clear/diminished in the bases; posterior lung sounds diminished throughout; cough is dry/nonproductive. GI: low NA diet; BS present; last BM 08/25/20. : marquez inserted on 08/21/20: light brian/clear/small clots. Skin: intact no open wounds; small bruising noted to abdomen from lovenox injections. IVs: left wrist/forearm 20 g IID inserted on 08/23/20; RUE 18 g midline inserted on 08/24/20. Patient is COVID positive and all precautions are in place. No pending laboratory studies in AM. Echo is pending for SOB but can't be completed at this time related to positive COVID status. Will continue to round prn.
[2020-08-25] MEDS: INSULIN LANTUS (GLARGINE) 1 /0.01ml (100units/ml) SC SCH (21:44)
[2020-08-26] VITALS (10 sets, daily range): BP systolic 105–139; BP diastolic 54–82
--- NOTE | 2020-08-26 05:00 | NUR ---
Patient bathe/linen change by CCT Patient given complete CHG bath. Linens and gown changed. Patient repositioned for comfort.
[2020-08-26] MEDS: SODIUM CHLOR 0.9% PF (SALINE LOCK) 10ML VIAL/SYR IV SCH ×3 (05:57→22:42)
[2020-08-26] MEDS: InsuLIN REG 1unit/0.01ml Soln (100units/ml) SC SCH ×9 (05:57→22:45)
[2020-08-26] MEDS: ACCU-CHEK COMFORT CURVE STRIP VI SCH ×4 (05:58→22:42)
[2020-08-26] MEDS: BUDESONIDE (INHALATION) 180 MCG IH IN SCH ×2 (07:14→22:31)
[2020-08-26] MEDS: ALBUTEROL SULF HFA 90MCG INH 200DOSE IN SCH ×3 (07:14→22:31)
--- NOTE | 2020-08-26 07:45 | NUR ---
INITIAL CONTACT REPORT RECEIVED FROM CRYSTAL PENA, CARE ASSUMED. MALE PATIENT OBSERVED SITTING ON EDGE OF BED FOR BREAKFAST. AFEBRILE. ALERT AND ORIENTED AND DENIES PAIN. PATIENT ABLE TO REPOSITION SELF. PULSES PALPABLE RADIAL AND PEDAL BILATERALLY. VITAL SIGNS REMAIN STABLE. PHYSICAL ASSESSMENT COMPLETED. SEE SKIN ASSESSMENT. PATIENT ON HIGH FLOW AT 55 L FIO2 90%, OXYGEN SATURATION 94-97% AT REST, NO SIGNS OF SHORTNESS OF BREATH NOTED. DESATURATION OCCURS WITH ACTIVITY. GUAN CATHETER PRESENT, PATENT, AND SECURED BELOW BLADDER. BED LOCKED IN LOWEST POSITION WITH CALL LIGHT AND ALL PERSONAL BELONGINGS PLACED WITHIN REACH. PATIENT INSTRUCTED TO CALL FOR ASSISTANCE. PATIENT VERBALIZED UNDERSTANDING. WILL CONTINUE TO MONITOR.
[2020-08-26] MEDS: CHOLECALCIFEROL (VITD3) 2,000 UNIT CAP PO SCH ×2 (09:47→10:00)
[2020-08-26] MEDS: ZINC SULFATE 220mg CAP or TAB PO SCH (09:47)
[2020-08-26] MEDS: BUMETANIDE 2.5mg/10ml (0.25 mg/ml) INJ IV SCH (09:47)
[2020-08-26] MEDS: ASCORBIC ACID 500 MG TAB PO SCH (09:47)
[2020-08-26] MEDS: ASPirin-EC 325mg tab PO SCH (09:47)
[2020-08-26] MEDS: POTASSIUM CHL 20 Meq TABLET PO SCH (09:47)
[2020-08-26] MEDS: DexAMETHasone SOD PHOS 10MG/1ML VIAL INJ IV SCH (09:47)
[2020-08-26] MEDS: cefTRIAXone 1GM/50ML D5W 50 ML IV SCH (09:48)
[2020-08-26] MEDS: ENOXAPARIN SOD 120 MG/0.8 ML SYRINGE SC SCH ×2 (09:48→22:43)
[2020-08-26] MEDS: INSULIN LANTUS (GLARGINE) 1 /0.01ml (100units/ml) SC SCH ×3 (10:00→22:44)
--- NOTE | 2020-08-26 10:26 | NUR ---
EDUCATION EDUCATION GIVEN TO PATIENT ON IMPORTANCE OF PRONING OR ATTEMPTING TO LAY ON SIDE. PATIENT VERBALIZED UNDERSTANDING. PATIENT ALSO INSTRUCTED TO USE INCENTIVE SPIROMETER EVERY HOUR WHILE AWAKE.
--- NOTE | 2020-08-26 10:43 | NUR ---
OXYGENATION RT AT BEDSIDE TO CHANGE HIGH FLOW FLUID. PATIENT OXYGEN SATURATION MAINTAINING 94-97% WHILE SITTING ON EDGE OF BED. RT DECREASED PATIENTS FIO2 FROM 90% TO 80%. BEDSIDE OXYGEN SATURATION MAINTAINING GREATER THAN 92%. ALL OTHER VS REMAIN STABLE.
[2020-08-26 12:31] LABS: Basophils # (auto) 0.1 10 ^3/uL (0-0.2); Basophils % (auto) 0.6 % (0.0-2.0); Eosinophils # (auto) 0 10 ^3/uL (0-0.8); Eosinophils % (auto) 0.3 % (0.0-7.0); Hemoglobin 14.9 g/dL (13.5-17.5); Lymphocytes # (auto) 1.2 10 ^3/uL (0.4-5.4); Lymphocytes % (auto) 8.6 % (10.0-50.0); Mean Corpuscular Hemoglobin 27.8 pg (28.0-32.0); Mean Corpuscular Hgb Conc. 33.2 g/dL (32.0-36.0); Mean Corpuscular Volume 83.6 fL (80.0-100.0); Monocytes # (auto) 0.6 10 ^3/uL (0-1.3); Monocytes % (auto) 4.7 % (0.0-12.0); Neutrophils # (auto) 11.5 10 ^3/uL (1.6-8.6); Neutrophils % (auto) 85.8 % (37.0-80.0); Nucleated Red Blood Cells % 0.1 %; Platelet Count (auto) 328 10^3/uL (140-450); Red Blood Cells 5.38 10^6/uL (4.5-5.90); Red Cell Distribution Width 14.8 % (11.8-14.3); White Blood Cell 13.4 10^3/uL (4.4-10.8)
[2020-08-26 12:46] LABS: Albumin 2.5 g/dL (3.4-5.0); Calcium 8.5 mg/dL (8.5-10.1); Potassium 3.8 mmol/L (3.5-5.1)
[2020-08-26 12:49] LABS: BUN/Creatinine Ratio 19.8; Bilirubin, Total 0.6 mg/dL (0.2-1.0); Total Protein 7.5 g/dL (6.4-8.2)
--- NOTE | 2020-08-26 13:00 | NUR ---
ACTIVITY PATIENT AMBULATED TO BEDSIDE COMMODE FOR BOWEL MOVEMENT WITH STANDBY ASSISTANCE. AFTER GINA CARE PERFORMED, PATIENT THEN AMBULATED TO WALKER AT BEDSIDE. VS REMAIN STABLE. LOWEST OXYGEN SATURATION WAS 88% WITH ACTIVITY.
--- NOTE | 2020-08-26 14:10 | NUR ---
ACTIVITY PATIENT AMBULATED BACK TO BED WITH STANDBY ASSISTANCE. DENIES SHORTNESS OF BREATH OR DISTRESS. VS REMAIN STABLE. CALL LIGHT AND ALL PERSONAL BELONGINGS PLACED WITHIN REACH.
--- NOTE | 2020-08-26 15:04 | NUR ---
OXYGENATION RT AT BEDSIDE. OXYGEN SATURATION MAINTAINING 93-95% WHILE SITTING ON EDGE OF BED. RT DECREASED PATIENTS FIO2 FROM 80% TO 70%. BEDSIDE OXYGEN SATURATION MAINTAINING GREATER THAN 92%. ALL OTHER VS REMAIN STABLE.
--- NOTE | 2020-08-26 17:00 | NUR ---
OOB PATIENT UP AND OUT OF BED SITTING IN WALKER EATING DINNER. NO DISTRESS NOTED, VS REMAIN STABLE. WILL CONTINUE TO MONITOR.
[2020-08-26] MEDS: AZITHROMYCIN 500MG/ 250ML 250 ML IV SCH (17:50)
--- NOTE | 2020-08-26 18:25 | NUR ---
Respiratory note: RECEIVED PT ON HFNC UNIT, UNIT CHECK DONE FROM PTS ROOM DOOR DUE TO COVID PRECAUTIONS. UNIT CONNECTED TO RED OUTLET, MEDICAL AIR AND WALL O2 SOURCE, AMBU BAG AND MASK AT BEDSIDE. PT COMFORTABLY SITTING IN CHAIR WATCHING TV AT BEDSIDE. NO S/S OF OF ACTIVE DISTRESS NOTED. WILL CONTINUE TO MONITOR.
--- NOTE | 2020-08-26 19:39 | NUR ---
REPORT REPORT GIVEN TO NICOLE PENA, CARE ENDORSED.
--- NOTE | 2020-08-26 20:00 | NUR ---
Opening Shift Note Assumed care of patient, awake and alert. No S/S of distress/SOB or pain. Instructed on POC and to call for assist PRN, will continue to monitor for changes.
[2020-08-26] MEDS ORDERED: INSULIN LANTUS (GLARGINE) 1 /0.01ml (100units/ml) SC SCH (22:00)
[2020-08-27] VITALS (12 sets, daily range): BP systolic 94–118; BP diastolic 55–69
--- NOTE | 2020-08-27 05:15 | NUR ---
Pt has remained stable this shift. Has been turning himself in bed. Linens were changed at beginning of shift and pt was given PM care. BM in BSC this evening. Pt requested another pillow. 2 pillows provided for comfort and positioning. Will continue to monitor rest of shift.
[2020-08-27] MEDS: ALBUTEROL SULF HFA 90MCG INH 200DOSE IN SCH ×3 (06:00→21:55)
[2020-08-27] MEDS: InsuLIN REG 1unit/0.01ml Soln (100units/ml) SC SCH ×7 (07:00→22:42)
--- NOTE | 2020-08-27 07:00 | NUR ---
Opening note Assumed care of patient at this time. Report received from MICKI RN. POC reviewed. Head to toe assessment complete, see intervention spreadsheet for complete details. Received pt on covid Isolation, received pt on high flow oxygen at 55 lts and 70 % FIo2. Patient alert and oriented x4, ambulatory with minimal assistance. PT denies pain, states that his bottom gets sore from sitting for long periods of time but is able to change positions to get comfortable. Received pt on specialty bed. IV sites benign. Received pt with marquez catheter draining to gravity. Bed locked and in lowest position, safety precautions in place. Call light within reach. Will monitor pt carefully.
[2020-08-27] MEDS: SODIUM CHLOR 0.9% PF (SALINE LOCK) 10ML VIAL/SYR IV SCH ×3 (07:53→22:44)
[2020-08-27] MEDS: ACCU-CHEK COMFORT CURVE STRIP VI SCH ×4 (07:55→22:44)
[2020-08-27 08:29] LABS: Basophils # (auto) 0.1 10 ^3/uL (0-0.2); Basophils % (auto) 0.9 % (0.0-2.0); Eosinophils # (auto) 0.1 10 ^3/uL (0-0.8); Eosinophils % (auto) 0.6 % (0.0-7.0); Hematocrit 43.1 % (41.0-53.0); Lymphocytes # (auto) 2.3 10 ^3/uL (0.4-5.4); Lymphocytes % (auto) 17.2 % (10.0-50.0); Mean Corpuscular Hgb Conc. 32.4 g/dL (32.0-36.0); Mean Corpuscular Volume 83.5 fL (80.0-100.0); Monocytes # (auto) 0.8 10 ^3/uL (0-1.3); Monocytes % (auto) 5.8 % (0.0-12.0); Neutrophils # (auto) 10.2 10 ^3/uL (1.6-8.6); Neutrophils % (auto) 75.5 % (37.0-80.0); Nucleated Red Blood Cells % 0.1 %; Platelet Count (auto) 289 10^3/uL (140-450); Red Blood Cells 5.17 10^6/uL (4.5-5.90); Red Cell Distribution Width 14.9 % (11.8-14.3); White Blood Cell 13.5 10^3/uL (4.4-10.8)
[2020-08-27 08:40] LABS: Albumin 2.4 g/dL (3.4-5.0); Calcium 8.1 mg/dL (8.5-10.1); Potassium 3.5 mmol/L (3.5-5.1)
[2020-08-27 08:44] LABS: BUN/Creatinine Ratio 24.6; Bilirubin, Total 0.6 mg/dL (0.2-1.0); Total Protein 6.8 g/dL (6.4-8.2)
--- NOTE | 2020-08-27 09:30 | NUR ---
OOB Patient OOB to use bed side commode. PT tolerated well. PT sitting at beside chair. VSS.
[2020-08-27] MEDS: BUMETANIDE 2.5mg/10ml (0.25 mg/ml) INJ IV SCH (09:53)
[2020-08-27] MEDS: ASPirin-EC 325mg tab PO SCH (09:53)
[2020-08-27] MEDS: ASCORBIC ACID 500 MG TAB PO SCH (09:53)
[2020-08-27] MEDS: cefTRIAXone 1GM/50ML D5W 50 ML IV SCH (09:53)
[2020-08-27] MEDS: ENOXAPARIN SOD 120 MG/0.8 ML SYRINGE SC SCH ×2 (09:53→22:44)
[2020-08-27] MEDS: CHOLECALCIFEROL (VITD3) 2,000 UNIT CAP PO SCH (09:54)
[2020-08-27] MEDS: ZINC SULFATE 220mg CAP or TAB PO SCH (09:54)
[2020-08-27] MEDS: POTASSIUM CHL 20 Meq TABLET PO SCH (09:54)
[2020-08-27] MEDS: INSULIN LANTUS (GLARGINE) 1 /0.01ml (100units/ml) SC SCH ×2 (10:00→22:43)
[2020-08-27] MEDS: BUDESONIDE (INHALATION) 180 MCG IH IN SCH ×2 (10:00→21:55)
[2020-08-27] MEDS: DexAMETHasone SOD PHOS 10MG/1ML VIAL INJ IV SCH (10:15)
--- NOTE | 2020-08-27 14:43 | NUR ---
Nutrition Followup Note Wt 173.0 kg Pt is covid positive in covid isolation in [facility]. Pt is with a Cardiac 2g Na/CCHO 60g diet with adequate PO of > 75% x 6 per RN doc Est energy needs 1017-7890 kcal (25-30 kcal/kg IBW 65kg), Est protein needs 65-84g (1-1.3g/kg IBW 65kg). will monitor and reassess prn. Labs: CA 8.1 L, ALB 2.4 L BM: Pt with 1 BM today per RN note Skin: BS 19 low risk, full details in reproductive healthcare assistant note PES: Obesity r/t caloric intake in excess of needs aeb pt with a BMI of 62.0kg/m2 Comments: Will Continue to monitor po intake, labs, skin. F/u mod 3-5 days Rec: 1) refer pt to OPD on DC. 2) Continue current plan of care
[2020-08-27] MEDS: AZITHROMYCIN 500MG/ 250ML 250 ML IV SCH (18:09)
--- NOTE | 2020-08-27 18:59 | NUR ---
SHIFT ASSESSMENT NO EVENTS TO REPORT. PT ABLE TO GET TO BEDSIDE COMMODE IN THE AM FOR BOWEL MOVEMENT. PT VOIDED 900 MLS FROM GUAN. PT DENIES PAIN. VSS. SAFETY PRECAUTIONS IN PLACE. CALL LIGHT WITHIN REACH.
--- NOTE | 2020-08-27 20:46 | NUR ---
MD at bedside. Spoke with pt. Modified Lantus BID to 40 units AM and 25 units PM. Changed SSC to mild coverage AC and HS. Pt stable at this time. Had 1 BM already this shift. Up at bedside in chair. Will continue to monitor.
[2020-08-28] VITALS (11 sets, daily range): BP systolic 100–143; BP diastolic 60–95
--- NOTE | 2020-08-28 00:25 | NUR ---
Pt not resting. Offered to call for a sleep aid, he said not. Decided he no longer wanted to be on the bipap and was put back on hi-flow. RT informed. Will continue to monitor.
[2020-08-28 03:48] LABS: Basophils # (auto) 0 10 ^3/uL (0-0.2); Basophils % (auto) 0.4 % (0.0-2.0); Eosinophils # (auto) 0.1 10 ^3/uL (0-0.8); Eosinophils % (auto) 1.2 % (0.0-7.0); Hemoglobin 13.6 g/dL (13.5-17.5); Lymphocytes # (auto) 2.1 10 ^3/uL (0.4-5.4); Lymphocytes % (auto) 21.1 % (10.0-50.0); Mean Corpuscular Hemoglobin 27.2 pg (28.0-32.0); Mean Corpuscular Hgb Conc. 32.4 g/dL (32.0-36.0); Monocytes # (auto) 0.8 10 ^3/uL (0-1.3); Monocytes % (auto) 7.9 % (0.0-12.0); Neutrophils % (auto) 69.4 % (37.0-80.0); Platelet Count (auto) 276 10^3/uL (140-450); Red Cell Distribution Width 15.2 % (11.8-14.3)
[2020-08-28 04:09] LABS: Albumin 2.3 g/dL (3.4-5.0); Calcium 8.3 mg/dL (8.5-10.1); Potassium 3.7 mmol/L (3.5-5.1)
[2020-08-28 04:13] LABS: BUN/Creatinine Ratio 18.1; Bilirubin, Total 0.6 mg/dL (0.2-1.0); Total Protein 6.2 g/dL (6.4-8.2)
[2020-08-28] MEDS: BUDESONIDE (INHALATION) 180 MCG IH IN SCH ×2 (06:56→22:02)
[2020-08-28] MEDS: ALBUTEROL SULF HFA 90MCG INH 200DOSE IN SCH ×3 (06:56→22:01)
--- NOTE | 2020-08-28 06:56 | NUR ---
Respiratory note: RECEIVED PT FROM RULING MACHINE FEEDER ON HFNC 55L, 70% FIO2. NASAL PRONGS IN PLACE, WITH NO REDNESS/BREAKDOWN NOTED. WATER CHANGED, WATER LEVEL AT ADEQUATE LEVEL. BS DIMINISHED BILATERALLY. ALBUTEROL MDI 90MCG, PULMICORT 360MCG DPI GIVEN WITH NO ADVERSE EFFECTS NOTED. DECREASED FLOW TO 50L, AND TITRATED FIO2 60%. PT TOLERATED CHANGE WELL. RN AWARE. NO OTHER CHANGES MADE AT THIS TIME. WILL CONTINUE TO MONITOR PT. CHARTING COMPLETE FROM OUTSIDE OF PT ROOM PER COVID-19 PRECAUTIONS/PROTOCOL.
--- NOTE | 2020-08-28 07:00 | NUR ---
Pt remained stable this shift. Transfers to bedside walker and commode safely. No S/S of distress this shift. Lump noted on the backs of both upper arms. Insulin given to thigh this morning. Report given to AM shift, care endorsed.
[2020-08-28] MEDS: ACCU-CHEK COMFORT CURVE STRIP VI SCH ×4 (08:17→21:15)
[2020-08-28] MEDS: SODIUM CHLOR 0.9% PF (SALINE LOCK) 10ML VIAL/SYR IV SCH ×3 (08:17→21:15)
[2020-08-28] MEDS: InsuLIN REG 1unit/0.01ml Soln (100units/ml) SC SCH ×4 (08:19→21:16)
--- NOTE | 2020-08-28 08:45 | NUR ---
Incentive Spirometer Patient able to return proper return demonstration reaching 1000ml during inspiration. Patient aware to use I.S 10X every hr when awake. Instructed patient to prone self. Patient stating proning is too difficult and stating he will try tonight. Patient educated proning is not only recommended at night. Instructed patient to at least lay on side if he cannot tolerate proning. Patient verbalized understanding.
--- NOTE | 2020-08-28 09:00 | NUR ---
Nutrition Patient ate 100% of breakfast . No difficultly noted.
[2020-08-28] MEDS: ASPirin-EC 325mg tab PO SCH (09:08)
[2020-08-28] MEDS: ASCORBIC ACID 500 MG TAB PO SCH (09:09)
[2020-08-28] MEDS: CHOLECALCIFEROL (VITD3) 2,000 UNIT CAP PO SCH (09:09)
[2020-08-28] MEDS: DexAMETHasone SOD PHOS 10MG/1ML VIAL INJ IV SCH (09:09)
[2020-08-28] MEDS: POTASSIUM CHL 20 Meq TABLET PO SCH (09:10)
[2020-08-28] MEDS: ZINC SULFATE 220mg CAP or TAB PO SCH (09:10)
[2020-08-28] MEDS: ENOXAPARIN SOD 120 MG/0.8 ML SYRINGE SC SCH ×2 (09:10→21:15)
[2020-08-28] MEDS: cefTRIAXone 1GM/50ML D5W 50 ML IV SCH (09:10)
[2020-08-28] MEDS: INSULIN LANTUS (GLARGINE) 1 /0.01ml (100units/ml) SC SCH ×2 (09:13→21:16)
--- NOTE | 2020-08-28 10:00 | NUR ---
Activity Patient able to transfer from bed to chair and bed to bedside commode independently with no difficultly. Pox remains wnl. Activity tolerated well.
[2020-08-28] MEDS: BUMETANIDE 2.5mg/10ml (0.25 mg/ml) INJ IV SCH (10:15)
--- NOTE | 2020-08-28 12:20 | NUR ---
Respiratory note: ROUTINE HFNC CHECK COMPLETE. NASAL PRONGS IN PLACE, WITH NO ADVERSE EFFECTS NOTED. WATER LACHO CHANGE. WATER AT ADEQUATE LEVEL. TITRATED FIO2 TO 50%. PT TOLERATED CHANGE WELL. NO OTHER CHANGES MADE AT THIS TIME. WILL CONTINUE TO MONITOR PT. CHARTING COMPLETE FROM OUTSIDE OF PT ROOM PER COVID-19 PRECAUTIONS/PROTOCOL.
--- NOTE | 2020-08-28 12:30 | NUR ---
NUTRITION Patient ate 100% of lunch tray without difficulty while sitting up oob.
--- NOTE | 2020-08-28 13:30 | NUR ---
Incentive spirometer Patient performing I.S independently in room while sitting up using seat to walker.
--- NOTE | 2020-08-28 14:30 | NUR ---
Elimination Patient had a large, brown, loose stool via bedside commode. Patient able to perform self kurtis care. Vss. Activity tolerated well.
--- NOTE | 2020-08-28 14:49 | NUR ---
Respiratory note: ROUTINE HFNC CHECK COMPLETE. NASAL PRONGS IN PLACE, SKIN BREAK DOWN NOTED. WATER AT ADEQUATE LEVEL. TITRATED FIO2 TO 40%. PT TOLERATED CHANGE WELL. RN AWARE. ALBUTEROL MDI TX GIVEN, WITH NO ADVERSE EFFECTS NOTED. NO OTHER CHANGES MADE AT THIS TIME. WILL CONTINUE TO MONITOR PT. CHARTING COMPLETE FROM OUTSIDE OF PT ROOM PER COVID-19 PRECAUTIONS/PROTOCOL.
--- NOTE | 2020-08-28 16:41 | NUR ---
HEMATOLOGY CONSULT REPAGED DR. LYNN RE-PAGED CONSULT NOT YET COMPLETED. MSG LEFT WITH EXCHANGE. AWAITING CALLBACK.
--- NOTE | 2020-08-28 16:51 | NUR ---
Rn Occupational Health at bedside Dr. Kennedy at bedside. See md notes.
[2020-08-28] MEDS: AZITHROMYCIN 500MG/ 250ML 250 ML IV SCH (17:08)
--- NOTE | 2020-08-28 20:00 | NUR ---
SHIFT OPENING NOTE RECEIVED PATIENT AWAKE, ALERT AND ORIENTED X4 SITTING ON BEDSIDE CHAIR. NO SOB, DISTRESS OR PAIN NOTED. ON HIGH FLOW NASAL CANNULA 50L, 40% FI02. POX 92%. GUAN CATH DRAINING HELADIO URINE TO GRAVITY. JAMEY MIDLINE SALINE LOCKED. PHYSICAL ASSESSMENT COMPLETED, SEE INTERVENTIONS. STANDBY ASSISTED PATIENT BACK TO BED. INSTRUCTED ON POC AND TO CALL FOR ASSIST NEEDED. BED IS IN THE LOWEST POSITION WITH SIDE RAILS UP X2, CALL LIGHT IS WITHIN REACH.
[2020-08-28] MEDS ORDERED: APIXABAN 5 MG TAB PO SCH (22:00)
[2020-08-29] VITALS (9 sets, daily range): BP systolic 92–123; BP diastolic 58–75
--- NOTE | 2020-08-29 02:10 | NUR ---
ROUNDS PATIENT QUIETLY LAYING IN BED SLEEPING. ON CPAP. POX 98%. WILL CONTINUE TO CLOSELY MONITOR.
[2020-08-29 03:40] LABS: Basophils # (auto) 0 10 ^3/uL (0-0.2); Basophils % (auto) 0.2 % (0.0-2.0); Eosinophils # (auto) 0.1 10 ^3/uL (0-0.8); Eosinophils % (auto) 0.6 % (0.0-7.0); Lymphocytes # (auto) 1.6 10 ^3/uL (0.4-5.4); Lymphocytes % (auto) 12.8 % (10.0-50.0); Mean Corpuscular Hemoglobin 27.4 pg (28.0-32.0); Mean Corpuscular Hgb Conc. 32.5 g/dL (32.0-36.0); Mean Corpuscular Volume 84.2 fL (80.0-100.0); Monocytes # (auto) 0.7 10 ^3/uL (0-1.3); Monocytes % (auto) 5.8 % (0.0-12.0); Neutrophils # (auto) 10.1 10 ^3/uL (1.6-8.6); Neutrophils % (auto) 80.6 % (37.0-80.0); Platelet Count (auto) 281 10^3/uL (140-450); Red Blood Cells 4.75 10^6/uL (4.5-5.90); Red Cell Distribution Width 14.8 % (11.8-14.3); White Blood Cell 12.5 10^3/uL (4.4-10.8)
[2020-08-29 03:58] LABS: Albumin 2.4 g/dL (3.4-5.0); Calcium 8.4 mg/dL (8.5-10.1); Potassium 3.7 mmol/L (3.5-5.1)
[2020-08-29 04:01] LABS: BUN/Creatinine Ratio 15.1; Bilirubin, Total 0.5 mg/dL (0.2-1.0); Total Protein 6.8 g/dL (6.4-8.2)
[2020-08-29] MEDS: ACCU-CHEK COMFORT CURVE STRIP VI SCH ×4 (06:03→20:14)
[2020-08-29] MEDS: InsuLIN REG 1unit/0.01ml Soln (100units/ml) SC SCH ×2 (06:03→12:02)
[2020-08-29] MEDS: SODIUM CHLOR 0.9% PF (SALINE LOCK) 10ML VIAL/SYR IV SCH ×2 (06:03→14:00)
[2020-08-29] MEDS: ALBUTEROL SULF HFA 90MCG INH 200DOSE IN SCH ×2 (06:39→14:57)
[2020-08-29] MEDS: BUDESONIDE (INHALATION) 180 MCG IH IN SCH (06:39)
--- NOTE | 2020-08-29 07:05 | NUR ---
REPORT RECEIVED FROM GED INSTRUCTOR NURSE. PATENT SITTING ON EDGE OF BED, RESPIRATIONS EVEN AND UNLABORED. NO SIGNS OF ACUTE DISTRESS NOTED. CALL LIGHT IN REACH, BED IN LOW POSITION. WILL CONTINUE TO MONITOR.
--- NOTE | 2020-08-29 07:05 | NUR ---
END OF SHIFT REPORT GIVEN AND CARE ENDORSED TO SIMON PENA.
[2020-08-29] MEDS: BUMETANIDE 2.5mg/10ml (0.25 mg/ml) INJ IV SCH (10:30)
[2020-08-29] MEDS: DexAMETHasone SOD PHOS 10MG/1ML VIAL INJ IV SCH (10:30)
[2020-08-29] MEDS: cefTRIAXone 1GM/50ML D5W 50 ML IV SCH (10:31)
[2020-08-29] MEDS: ASCORBIC ACID 500 MG TAB PO SCH (10:31)
[2020-08-29] MEDS: ASPirin-EC 325mg tab PO SCH (10:31)
[2020-08-29] MEDS: POTASSIUM CHL 20 Meq TABLET PO SCH (10:31)
[2020-08-29] MEDS: ZINC SULFATE 220mg CAP or TAB PO SCH (10:31)
[2020-08-29] MEDS: ENOXAPARIN SOD 120 MG/0.8 ML SYRINGE SC SCH (10:32)
[2020-08-29] MEDS: CHOLECALCIFEROL (VITD3) 2,000 UNIT CAP PO SCH (10:32)
[2020-08-29] MEDS: INSULIN LANTUS (GLARGINE) 1 /0.01ml (100units/ml) SC SCH ×2 (10:33→20:34)
--- NOTE | 2020-08-29 10:45 | NUR ---
Respiratory note: TOOK PATIENT OFF HFNC AND PLACED ON A 7L OXYMIZER. SPO2 93-94%. BECKY ROSEN.
--- NOTE | 2020-08-29 10:45 | NUR ---
RESPIRATORY THERAPIST AT BEDSIDE TO PLACE PATIENT ON OXYMIZER TRIAL. PATIENT TOLERATING WELL, SATURATIONS 93% ON 7 LITERS OXYMIZER. NO SIGNS OF ACUTE DISTRESS NOTED. WILL CONTINUE TO MONITOR.
--- NOTE | 2020-08-29 11:36 | NUR ---
PAGED DR Segundo SORIANO FOR PATIENTS BLOOD SUGAR IN 300'S. AWAITING CALL BACK TO SEE IF MD WANTS TO INCREASE SLIDING SCALE.
--- NOTE | 2020-08-29 12:15 | NUR ---
DR BOND AT BEDSIDE TO ASSESS PATIENT AND DISCUSS PLAN OF CARE. PER MD PATIENT OK TO GO TO [facility] TELEMETRY FLOOR LATE THIS AFTERNOON IF OXYGEN IS AT 5 LITERS AND SATURATIONS REMAIN STABLE.
--- NOTE | 2020-08-29 12:30 | NUR ---
OXYGEN PATIENT OXYMIZER DECREASED TO 5 LITERS SATURATIONS 95%. WILL CONTINUE TO MONITOR.
--- NOTE | 2020-08-29 12:34 | NUR ---
DR Andrew LYNN AT BEDSIDE TO ASSESS PATIENT AND DISCUSS PLAN OF CARE. NO NEW ORDERS AT THIS TIME. PER MD RECOMMENDS PO BLOOD THINNERS. WILL INFORM DR Segundo SORIANO ON ROUNDING.
--- NOTE | 2020-08-29 14:05 | NUR ---
KWESI RN COVERING LUNCHES FOR PRIMARY NURSE, SPOKE TO DR Segundo SORIANO ABOUT PATIENTS STATUS AND IF PATIENT CAN DOWNGRADE TO TELEMETRY FLOOR WELL PATIENTS BLOOD SUGARS. ALL ORDERS NOTED IN CHART.
--- NOTE | 2020-08-29 14:20 | NUR ---
PATIENT PLACED ON 3 LITERS OXYMIZER AND SATURATIONS 95-96%. WILL CONTINUE TO MONITOR AND CHANGE PATIENT OVER TO NASAL CANULA IF TOLERATED.
--- NOTE | 2020-08-29 14:35 | NUR ---
PATIENT PLACED ON 3 LITERS NASAL CANULA SATURATIONS 94% PER DR Segundo SORIANO. WILL CONTINUE TO MONITOR.
[2020-08-29] MEDS ORDERED: DEXTROSE (50%) 50ML SYRG IV PRN (14:45)
--- NOTE | 2020-08-29 14:57 | NUR ---
LEFT MESSAGE FOR EIPFANIO FROM CUSTOMER SERVICE CORRESPONDENCE CLERK TO CLARIFY WHAT IS NEEDED FOR HOME O2 IF A ROOM AIR ABG OR ABG ON CURRENT OXYGEN OF 3 LITERS NASAL CANULA, AWAITING CALL BACK.
--- NOTE | 2020-08-29 16:31 | NUR ---
D/C planning Per social service consult for home health safety evaluation and oxygen at 3 to 4 l/min. Faxed clinical information to [facility] and [facility]. Per Patti with [facility] [phone] patient has been accepted and service to start within 24-48hrs upon d.c day. Per Dominga with [facility] order has been received and they will deliver portable oxygen to front lobby and concentrate oxygen to patient home. Obtain authorization from [facility] for [facility] [id number] and [facility] [id number].
[2020-08-29] MEDS ORDERED: InsuLIN REG 1unit/0.01ml Soln (100units/ml) SC SCH ×2 (17:00→22:00)
--- NOTE | 2020-08-29 17:05 | NUR ---
PATIENTS OXYGEN DELIVERED TO BEDSIDE, PER PATIENT WILL BE DELIVERING HIS STATIONARY OXYGEN MACHINE AT HOME IN 20MIN.
[2020-08-29] MEDS: AZITHROMYCIN 500MG/ 250ML 250 ML IV SCH (18:07)
[2020-08-29] MEDS ORDERED: NEBUMIS40 XX (19:58)
[2020-08-29] MEDS ORDERED: DEX4T PO (19:58)
[2020-08-29] MEDS ORDERED: APIX5TAB OR (19:58)
[2020-08-29] MEDS ORDERED: INSREGI SC (19:58)
[2020-08-29] MEDS ORDERED: LANC-347 XX (19:58)
[2020-08-29] MEDS ORDERED: ZINCCAP PO (19:58)
[2020-08-29] MEDS ORDERED: ALBUAER3 IN (19:58)
[2020-08-29] MEDS ORDERED: BUME1TAB28 PO (19:58)
[2020-08-29] MEDS ORDERED: ASPI-231 PO (19:58)
[2020-08-29] MEDS ORDERED: [UNRECOGNIZED DRUG - CODE] XX (19:58)
[2020-08-29] MEDS ORDERED: CHOL1CAP47 PO (19:58)
[2020-08-29] MEDS ORDERED: IPRA0.00 IN (19:58)
[2020-08-29] MEDS ORDERED: POTA-220 PO (19:58)
[2020-08-29] MEDS ORDERED: BLOOKIT79 XX (19:58)
[2020-08-29] MEDS ORDERED: INSU-829 XX (19:58)
[2020-08-29] MEDS ORDERED: ASCO500T11 PO (19:58)
[2020-08-29] MEDS ORDERED: ALCO1PAD13 XX (19:58)
[2020-08-29] MEDS ORDERED: INSLANTI SC (20:03)
--- NOTE | 2020-08-29 20:22 | NUR ---
ROSAURA @ BEDSIDE TO ASSESS PT, SPEAKING MD BOND OVER PHONE. PT ON 3 LTR TOLERATING WELL, PT REQUESTING TO GO HOME TONIGHT. MD BOND GAVE CLEARANCE FOR PT TO BE DISCHARGE TO [facility] AND MYSELF OVER PHONE.
--- NOTE | 2020-08-29 20:27 | NUR ---
PT GLUCOSE 482, SPOKE WITH MD JOEL CONFIRMED WITH MD WARD TO DISCHARGE PT TONIGHT LONG WE COVER HIS BLOOD SUGAR BEFORE DISCHARGE, NO ADDITIONAL ORDERS RECEIVED.
--- NOTE | 2020-08-29 20:33 | NUR ---
SPOKE WITH [facility], COVER PT WITH SLIDING SCALE ORDERED, GIVE THE DAILY METFORMIN NOW AND RECHECK GLUCOSE IN 1 HR, IF BLOOD SUGARS DROP INTO 300 RANGE OR LOWER PT OKAY TO BE DISCHARGED HOME. IF NOT WILL CALL BACK
[2020-08-29] MEDS ORDERED: metFORMIN HYDROCHLORIDE 500 MG TAB PO ONE (20:45)
--- NOTE | 2020-08-29 20:47 | NUR ---
EXPLAINED TO PT THAT HIS BLOOD GLUCOSE IS CRITICALLY HIGH AND THAT WE HAD TO CONTACT THE MD WHO WANTS US TO RECHECK HIS BLOOD SUGAR IN 1 HOUR. PT STATED HE THINKS IT IS THE STEROIDS BECAUSE IT NORMALLY NOT THIS HIGH AND THAT HE UNDERSTANDS AND IS COMPLIANT WITH TREATMENT.
[2020-08-29] MEDS ORDERED: APIXABAN 5 MG TAB PO SCH (22:00)
--- NOTE | 2020-08-29 22:27 | NUR ---
IV removal MIDLINE IV DC'd with clean sterile technique, catheter fully intact. Pressure dressing applied to site. Patient tolerated well. Marquez catheter dc'd Order to discontinue marquez catheter. Marquez dc'd with clean technique following deflation of balloon. Patient tolerated well with no complaints of pain. Continue care. Regular Discharge PT DISCHARGED HOME WITH FAMILY, HOME OXYGEN AND ALL BELONGINGS SENT WITH PT. DISCHARGE PACKET, NEW MEDICATIONS EG. REGULAR/LANTUS INSULIN AND INSTRUCTIONS EXPLAINED AND GIVEN TO PT. PT RESPONDED WITH UNDERSTANDING AND COMPLIANCE. ALL QUESTIONS AND CONCERNS ADDRESSED. NOTIFIED PT IF AT ANY TIME HE FEELS SYMPTOMS GETTING WORSE TO RETURN TO THE ER IMMEDIATELY.
--- NOTE | 2020-08-29 22:41 | NUR ---
Patient was discharged home, family picked him up from hospital. Patient had all his belongings. Patient left with own O2 tank, alert oriented and able to ambulate. Denied pain or SOB. West catheter was removed, midline was discontinued, catheter intact, covered with gauze and dressing, pressure was applied to the site until it stopped bleeding. All documents given to patient, RN educated and instructed patient on all paperwork, medications and follow up.
[2020-08-30] MEDS ORDERED: ASPirin-EC 81 mg tab PO SCH (10:00)
[2020-08-30] MEDS ORDERED: DexAMETHasone SOD PHOS 4 MG/1ML SDV INJ IV SCH (10:00)
== END 2020-08-29 22:38 | disposition home health service (06) | DRG 137 ==
LOC: ER 16:54 → OVERFLOW 16:55 → EAST 23:51 → TELE-EAST 08-15 10:51 → DOU IN ICU 08-18 13:45
PROVIDERS: ADMIT Internal Medicine; ATTEND Internal Medicine
PROC: 5A09457 Assistance with Respiratory Ventilation, 24-96 Consecutive Hours, Continuous Positive Airway Pressure (ICD-10-PCS; 2020-08-15)
PROC: XW033E5 Introduction of Remdesivir Anti-infective into Peripheral Vein, Percutaneous Approach, New Technology Group 5 (ICD-10-PCS; 2020-08-16)
PROC: XW13325 Transfusion of Convalescent Plasma (Nonautologous) into Peripheral Vein, Percutaneous Approach, New Technology Group 5 (ICD-10-PCS; principal; 2020-08-19)
DX: U07.1 COVID-19 (principal); J12.89 Other viral pneumonia; J96.01 Acute respiratory failure with hypoxia; E66.2 Morbid (severe) obesity with alveolar hypoventilation; Z68.44 Body mass index [BMI] 60.0-69.9, adult; D89.839 Cytokine release syndrome, grade unspecified; J98.11 Atelectasis; I82.433 Acute embolism and thrombosis of popliteal vein, bilateral; E11.65 Type 2 diabetes mellitus with hyperglycemia; Z88.0 Allergy status to penicillin; Z79.01 Long term (current) use of anticoagulants; Z82.49 Family history of ischemic heart disease and other diseases of the circulatory system; Z83.3 Family history of diabetes mellitus; J15.9 Unspecified bacterial pneumonia; T38.0X5A Adverse effect of glucocorticoids and synthetic analogues, initial encounter
CPT/HCPCS: 36415; 36600; 71045; 80048; 80053; 82728; 82805; 82962; 83036; 83605; 83615; 83735; 84100; 85007; 85025; 85027; 85379; 85610; 85730; 86141; 86850; 86900; 86901; 87040; 87426; 93970; 94640; 94660; G0378; J0696; J1100; J1815

== ENCOUNTER 2022-07-29 16:37 | Inpatient (IN) | payer MEDICAID ==
[~2022-07-29] VITALS: Ht 167.6 cm; Wt 189.6 kg
[~2022-07-29 16:37] MED LIST: ALBUAER3 IN; ALCO1PAD13 XX; APIX5TAB OR; ASCO500T11 PO; ASPI1TAB20 PO; BLOOKIT79 XX; BUME1TAB28 PO; CHOL1CAP47 PO; DEX4T PO; INSLANTI SC; INSREGI SC; INSU-829 XX; IPRA0.00 IN; LANC-347 XX; METF-370 PO; NEBUMIS40 XX; POTA-220 PO; ZINCCAP PO; [UNRECOGNIZED DRUG - CODE] XX
[2022-07-29 18:13] LABS: Urine Bacteria FEW /hpf (None Seen); Urine Blood Negative /uL (Negative); Urine Mucus FEW (None Seen); Urine WBC 120 /hpf (0 - 3)
[2022-07-29 18:52] LABS: Basophils # (auto) 0.2 10 ^3/uL (0-0.2); Basophils % (auto) 0.8 % (0.0-2.0); Eosinophils # (auto) 0 10 ^3/uL (0-0.8); Hematocrit 41.9 % (41.0-53.0); Hemoglobin 13.6 g/dL (13.5-17.5); Lymphocytes % (auto) 13.3 % (10.0-50.0); Mean Corpuscular Hemoglobin 27.7 pg (28.0-32.0); Mean Corpuscular Hgb Conc. 32.3 g/dL (32.0-36.0); Mean Corpuscular Volume 85.7 fL (80.0-100.0); Monocytes # (auto) 1.4 10 ^3/uL (0-1.3); Monocytes % (auto) 6.3 % (0.0-12.0); Neutrophils # (auto) 17.7 10 ^3/uL (1.6-8.6); Neutrophils % (auto) 79.6 % (37.0-80.0); Nucleated Red Blood Cells % 0.1 %; Red Blood Cells 4.89 10^6/uL (4.5-5.90); Red Cell Distribution Width 14.9 % (11.8-14.3); White Blood Cell 22.3 10^3/uL (4.4-10.8)
[2022-07-29 19:09] LABS: Albumin 3.2 g/dL (3.4-5.0); BUN/Creatinine Ratio 7.8; Calcium 8.2 mg/dL (8.5-10.1); Potassium 4.1 mmol/L (3.5-5.1)
[2022-07-29 19:12] LABS: Bilirubin, Total 0.9 mg/dL (0.2-1.0); Total Protein 7.3 g/dL (6.4-8.2)
[2022-07-29] MEDS ORDERED: CIPROFLOXACIN HCL 500 MG TAB PO ONE (19:15)
[2022-07-29 19:17] LABS: Lactic Acid w/Reflex 2.4 mmol/L (0.4-2.0)
[2022-07-29] MEDS ORDERED: SODIUM CHLORIDE 0.9% 1,000 ML IVB ONE (19:45)
[2022-07-29] MEDS ORDERED: cefTRIAXone 1GM/50ML D5W 50 ML IV ONE (19:45)
[2022-07-29] MEDS ORDERED: ONDANSETRON HCL 4 MG/2 ML VIAL IV PRN (21:45)
[2022-07-29] MEDS ORDERED: DEXTROSE (50%) 50ML SYRG IV PRN (21:45)
[2022-07-29] MEDS ORDERED: TEMAZEPAM 15 MG CAP PO PRN (21:45)
[2022-07-29] MEDS ORDERED: ACETAMINOPHEN 325 MG TAB PO PRN (21:45)
[2022-07-29] MEDS: ACCU-CHEK COMFORT CURVE STRIP VI SCH (22:00)
[2022-07-29] MEDS: InsuLIN REG 1unit/0.01ml Soln (100units/ml) SC SCH (22:00)
[2022-07-29] MEDS: ATORVASTATIN 20 MG TAB PO SCH (22:55)
[2022-07-29] MEDS: GABAPENTIN 100 MG CAP PO SCH (22:55)
[2022-07-30 03:00] VITALS: BP 115/70
[2022-07-30 04:10] VITALS: BP 115/70
[2022-07-30] MEDS: GABAPENTIN 100 MG CAP PO SCH ×3 (06:24→21:56)
[2022-07-30] MEDS: InsuLIN REG 1unit/0.01ml Soln (100units/ml) SC SCH ×4 (06:28→22:00)
[2022-07-30] MEDS: ACCU-CHEK COMFORT CURVE STRIP VI SCH ×4 (06:30→21:57)
[2022-07-30 07:04] LABS: Basophils # (auto) 0 10 ^3/uL (0-0.2); Basophils % (auto) 0.2 % (0.0-2.0); Eosinophils # (auto) 0 10 ^3/uL (0-0.8); Eosinophils % (auto) 0.2 % (0.0-7.0); Hematocrit 37.5 % (41.0-53.0); Hemoglobin 12.3 g/dL (13.5-17.5); Lymphocytes # (auto) 2.5 10 ^3/uL (0.4-5.4); Lymphocytes % (auto) 13.1 % (10.0-50.0); Mean Corpuscular Hemoglobin 28.2 pg (28.0-32.0); Mean Corpuscular Hgb Conc. 32.8 g/dL (32.0-36.0); Monocytes # (auto) 1.2 10 ^3/uL (0-1.3); Neutrophils # (auto) 15.6 10 ^3/uL (1.6-8.6); Neutrophils % (auto) 80.5 % (37.0-80.0); Red Blood Cells 4.36 10^6/uL (4.5-5.90); Red Cell Distribution Width 14.9 % (11.8-14.3); White Blood Cell 19.4 10^3/uL (4.4-10.8)
[2022-07-30 07:31] LABS: BUN/Creatinine Ratio 10.7; Calcium 7.9 mg/dL (8.5-10.1); Potassium 3.6 mmol/L (3.5-5.1)
[2022-07-30 08:11] VITALS: BP 120/78
[2022-07-30] MEDS: ENOXAPARIN SOD 40 MG/0.4 ML SYRINGE SC SCH (09:10)
[2022-07-30] MEDS: PANTOPRAZOLE 40 MG TAB PO SCH (09:10)
[2022-07-30] MEDS: LOSARTAN POTASSIUM 25 MG TAB PO SCH (09:10)
[2022-07-30 13:46] VITALS: BP 105/65
[2022-07-30 17:38] VITALS: BP 129/75
[2022-07-30] MEDS: ATORVASTATIN 20 MG TAB PO SCH (21:56)
[2022-07-30 22:00] VITALS: BP 103/63
[2022-07-31 05:00] VITALS: BP 104/54
[2022-07-31] MEDS: ACCU-CHEK COMFORT CURVE STRIP VI SCH ×4 (06:36→21:52)
[2022-07-31] MEDS: GABAPENTIN 100 MG CAP PO SCH ×3 (06:36→21:49)
[2022-07-31] MEDS: InsuLIN REG 1unit/0.01ml Soln (100units/ml) SC SCH ×4 (06:44→21:52)
[2022-07-31] MEDS ORDERED: GLIP5TAB12 PO (08:48)
[2022-07-31 09:00] VITALS: BP 112/76
[2022-07-31] MEDS: PANTOPRAZOLE 40 MG TAB PO SCH (09:53)
[2022-07-31] MEDS: ENOXAPARIN SOD 40 MG/0.4 ML SYRINGE SC SCH ×2 (09:53→21:47)
[2022-07-31] MEDS: LOSARTAN POTASSIUM 25 MG TAB PO SCH (09:54)
[2022-07-31] MEDS ORDERED: cefTRIAXone 1GM/50ML D5W 50 ML IV ONE (10:45)
[2022-07-31 12:44] VITALS: BP 119/60
[2022-07-31 17:00] VITALS: BP 145/88
[2022-07-31] MEDS ORDERED: TAMSULOSIN HYDROCHLORIDE 0.4 MG CAP PO SCH (18:00)
[2022-07-31 20:00] VITALS: BP 117/76
[2022-07-31] MEDS: ATORVASTATIN 20 MG TAB PO SCH (21:49)
[2022-07-31 22:00] VITALS: BP 117/76
[2022-08-01 05:00] VITALS: BP 99/56
[2022-08-01] MEDS: GABAPENTIN 100 MG CAP PO SCH ×2 (05:57→14:00)
[2022-08-01] MEDS: InsuLIN REG 1unit/0.01ml Soln (100units/ml) SC SCH ×2 (06:46→12:16)
[2022-08-01] MEDS: ACCU-CHEK COMFORT CURVE STRIP VI SCH ×2 (06:47→12:15)
[2022-08-01 08:53] VITALS: BP 120/79
[2022-08-01] MEDS ORDERED: cefTRIAXone 1GM/50ML D5W 50 ML IV SCH (09:00)
[2022-08-01] MEDS: PANTOPRAZOLE 40 MG TAB PO SCH (10:45)
[2022-08-01] MEDS: LOSARTAN POTASSIUM 25 MG TAB PO SCH (10:46)
[2022-08-01] MEDS: ENOXAPARIN SOD 40 MG/0.4 ML SYRINGE SC SCH (10:47)
[2022-08-01 11:20] LABS: Basophils # (auto) 0 10 ^3/uL (0-0.2); Basophils % (auto) 0.5 % (0.0-2.0); Eosinophils # (auto) 0.1 10 ^3/uL (0-0.8); Eosinophils % (auto) 1.4 % (0.0-7.0); Hematocrit 43.8 % (41.0-53.0); Hemoglobin 14.2 g/dL (13.5-17.5); Lymphocytes # (auto) 1.1 10 ^3/uL (0.4-5.4); Lymphocytes % (auto) 14.9 % (10.0-50.0); Mean Corpuscular Hemoglobin 27.9 pg (28.0-32.0); Mean Corpuscular Hgb Conc. 32.5 g/dL (32.0-36.0); Mean Corpuscular Volume 85.6 fL (80.0-100.0); Monocytes # (auto) 0.6 10 ^3/uL (0-1.3); Monocytes % (auto) 7.5 % (0.0-12.0); Neutrophils # (auto) 5.6 10 ^3/uL (1.6-8.6); Neutrophils % (auto) 75.7 % (37.0-80.0); Nucleated Red Blood Cells % 0.1 %; Red Blood Cells 5.11 10^6/uL (4.5-5.90); Red Cell Distribution Width 14.6 % (11.8-14.3); White Blood Cell 7.5 10^3/uL (4.4-10.8)
[2022-08-01] MEDS ORDERED: LEVO500T31 PO (11:25)
[2022-08-01] MEDS ORDERED: TAM04C PO (11:33)
[2022-08-01 13:00] VITALS: BP 143/95
[2022-08-01 13:03] VITALS: BP 120/79
== END 2022-08-01 16:25 | disposition home or self-care (01) | DRG 720 ==
LOC: ER 16:37 → OVERFLOW 21:39 → WEST WING 07-30 02:35
PROVIDERS: ADMIT Nurse Practitioner; ATTEND Internal Medicine
DX: A41.9 Sepsis, unspecified organism (principal); Z68.44 Body mass index [BMI] 60.0-69.9, adult; N39.0 Urinary tract infection, site not specified; E11.9 Type 2 diabetes mellitus without complications; E66.01 Morbid (severe) obesity due to excess calories; I10 Essential (primary) hypertension; Z82.49 Family history of ischemic heart disease and other diseases of the circulatory system; Z88.0 Allergy status to penicillin
CPT/HCPCS: 36415; 80048; 80053; 81001; 82962; 83605; 85025; 87040; 87086; 87426; 96365; G0378; J0696; J1815

== ENCOUNTER → 2024-04-05 | Outpatient (CLI) | payer MEDICAID ==
[~2024-04-05] MED LIST changes: -ALBUAER3 IN; -ALCO1PAD13 XX; -APIX5TAB OR; -ASCO500T11 PO; -BLOOKIT79 XX; -CHOL1CAP47 PO; -DEX4T PO; +ERGO1CAP12 PO; +GLIP5TAB21 PO; -INSLANTI SC; -INSREGI SC; -INSU-829 XX; -IPRA0.00 IN; -LANC-347 XX; +LEVO500T31 PO; -NEBUMIS40 XX; +TAMS-35 PO; +TRAM50TA2 PO; -ZINCCAP PO; +[UNRECOGNIZED DRUG - CODE] PO; -[UNRECOGNIZED DRUG - CODE] XX
[2024-04-05 07:58] LABS: Urine Bacteria None Seen /hpf (None Seen)
[2024-04-05 08:10] LABS: Basophils # (auto) 0 10 ^3/uL (0-0.2); Basophils % (auto) 0.3 % (0.0-2.0); Eosinophils # (auto) 0.1 10 ^3/uL (0-0.8); Eosinophils % (auto) 1.6 % (0.0-7.0); Hematocrit 42.1 % (41.0-53.0); Hemoglobin 13.9 g/dL (13.5-17.5); Lymphocytes # (auto) 2.7 10 ^3/uL (0.4-5.4); Lymphocytes % (auto) 28.1 % (10.0-50.0); Mean Corpuscular Hemoglobin 28.3 pg (28.0-32.0); Mean Corpuscular Hgb Conc. 32.9 g/dL (32.0-36.0); Monocytes # (auto) 0.6 10 ^3/uL (0-1.3); Monocytes % (auto) 6.1 % (0.0-12.0); Neutrophils # (auto) 6.1 10 ^3/uL (1.6-8.6); Neutrophils % (auto) 63.9 % (37.0-80.0); Nucleated Red Blood Cells % 0.1 %; Red Blood Cells 4.89 10^6/uL (4.5-5.90); Red Cell Distribution Width 15.3 % (11.8-14.3); White Blood Cell 9.5 10^3/uL (4.4-10.8)
[2024-04-05 08:19] LABS: Urine Blood TRACE /uL (Negative); Urine Clarity Clear (Clear); Urine Color Yellow (Yellow); Urine Mucus FEW (None Seen); Urine Protein, UAD TRACE (Negative); Urine Specific Gravity 1.024 (1.001-1.035); Urine Urobilinogen Normal (Negative); Urine WBC 36 /hpf (0 - 3); Urine pH 5.5 (5.0-9.0)
[2024-04-05 08:53] LABS: Alanine Aminotransferase 14 U/L (7-40); Albumin 4.1 g/dL (3.2-4.8); Alkaline Phosphatase 55 U/L (46-116); Anion Gap 6 (5-15); Aspartate Aminotransferase 17 U/L (13-40); BUN/Creatinine Ratio 11.4 (10.0-20.0); Blood Urea Nitrogen 9 mg/dL (9-23); Calcium 9.2 mg/dL (8.5-10.1); Carbon Dioxide 28 mmol/L (20-30); Chloride 105 mmol/L (98-107); Cholesterol 159 mg/dL (< 200); Glucose 180 mg/dL (74-106); HDL Cholesterol 41 mg/dL (40-59); LDL Cholesterol 99 mg/dL (< 100); Potassium 4.2 mmol/L (3.5-5.1); Sodium 139 mmol/L (136-145); Triglycerides 136 mg/dL (< 150)
[2024-04-05 08:54] LABS: Bilirubin, Total 0.4 mg/dL (0.2-1.0); Total Protein 7.2 g/dL (5.7-8.2)
== END | disposition home or self-care (01) ==
LOC: LAB 07:45
PROVIDERS: ATTEND Internal Medicine
DX: I10 Essential (primary) hypertension (principal); E78.5 Hyperlipidemia, unspecified; E11.42 Type 2 diabetes mellitus with diabetic polyneuropathy
CPT/HCPCS: 36415; 80053; 80061; 81001; 83036; 84439; 84443; 85025

== ENCOUNTER → 2024-05-30 | Outpatient (CLI) | payer MEDICAID ==
[2024-05-30 10:22] LABS: Urine Bacteria FEW /hpf (None Seen); Urine Blood Negative /uL (Negative); Urine Clarity Clear (Clear); Urine Color Yellow (Yellow); Urine Mucus FEW (None Seen); Urine Protein, UAD Negative (Negative); Urine Specific Gravity 1.019 (1.001-1.035); Urine Urobilinogen Normal (Negative); Urine WBC 23 /hpf (0 - 3); Urine pH 5.5 (5.0-9.0)
[2024-05-30 11:07] LABS: Creatinine, Urine 137.43 mg/dL (30.0-125.0)
[2024-05-30 11:14] LABS: Erythrocyte Sedimentation Rate 32 mm/hr (0-20)
[2024-05-30 11:23] LABS: Hepatitis B Surface Antigen Negative (Negative)
[2024-05-30 11:43] LABS: Hepatitis A Ab IgM Negative
[2024-05-30 11:44] LABS: Hepatitis B Core IgM Negative; Hepatitis C Antibody Negative (Negative)
[2024-05-31 07:07] LABS: RPR Non Reactive (Non Reactive)
[2024-05-31 08:06] LABS: HSV 1 IgG Antibody <0.91 index (0.00-0.90); Mumps IgG Antibody <9.0 AU/mL (Immune >10.9); Varicella Zoster IgG Antibody 2564 index (Immune >165)
[2024-05-31 12:06] LABS: Chlamydia Trachomatis, NAA Negative (Negative); Neisseria gonorrhoeae, NAA Negative (Negative)
== END | disposition home or self-care (01) ==
LOC: LAB 09:46
PROVIDERS: ATTEND Internal Medicine
DX: Z11.59 Encounter for screening for other viral diseases (principal); Z11.3 Encounter for screening for infections with a predominantly sexual mode of transmission; Z12.5 Encounter for screening for malignant neoplasm of prostate; I10 Essential (primary) hypertension; K76.0 Fatty (change of) liver, not elsewhere classified; R70.0 Elevated erythrocyte sedimentation rate; E78.5 Hyperlipidemia, unspecified; E11.69 Type 2 diabetes mellitus with other specified complication; R82.90 Unspecified abnormal findings in urine
CPT/HCPCS: 36415; 80074; 81001; 82043; 82306; 82570; 84153; 85652; 86141; 86592; 86695; 86696; 86703; 86735; 86762; 86787

== ENCOUNTER 2025-03-20 10:33 | Outpatient (CLI) | payer MEDICAID ==
[2025-03-20 10:55] LABS: Urine Bacteria None Seen /hpf (None Seen)
[2025-03-20 11:00] LABS: Basophils # (auto) 0.1 10 ^3/uL (0-0.2); Eosinophils # (auto) 0.1 10 ^3/uL (0-0.8); Eosinophils % (auto) 1.3 % (0.0-7.0); Hematocrit 44.5 % (41.0-53.0); Hemoglobin 14.7 g/dL (13.5-17.5); Lymphocytes # (auto) 2.6 10 ^3/uL (0.4-5.4); Lymphocytes % (auto) 28.8 % (10.0-50.0); Mean Corpuscular Hgb Conc. 33.1 g/dL (32.0-36.0); Mean Corpuscular Volume 84.7 fL (80.0-100.0); Monocytes # (auto) 0.6 10 ^3/uL (0-1.3); Monocytes % (auto) 6.3 % (0.0-12.0); Neutrophils # (auto) 5.7 10 ^3/uL (1.6-8.6); Neutrophils % (auto) 62.6 % (37.0-80.0); Nucleated Red Blood Cells % 0.1 %; Platelet Count (auto) 267 10^3/uL (140-450); Red Blood Cells 5.26 10^6/uL (4.5-5.90); White Blood Cell 9.1 10^3/uL (4.4-10.8)
[2025-03-20 11:10] LABS: Urine Blood Negative /uL (Negative); Urine Clarity Clear (Clear); Urine Color Yellow (Yellow); Urine Mucus FEW (None Seen); Urine Protein, UAD TRACE (Negative); Urine Specific Gravity 1.024 (1.001-1.035); Urine Sperm PRESENT /hpf (None Seen); Urine Squamous Epithelial Cell FEW /hpf (<5); Urine Urobilinogen Normal (Negative); Urine WBC 2 /HPF (0-3); Urine pH 5.5 (5.0-9.0)
[2025-03-20 11:34] LABS: Alanine Aminotransferase 15 U/L (7-40); Albumin 4.3 g/dL (3.2-4.8); Alkaline Phosphatase 53 U/L (46-116); Anion Gap 11 (5-15); Aspartate Aminotransferase 25 U/L (13-40); BUN/Creatinine Ratio 9.1 (10.0-20.0); Bilirubin, Total 0.4 mg/dL (0.2-1.0); Calcium 9.7 mg/dL (8.7-10.4); Carbon Dioxide 27 mmol/L (20-31); Chloride 104 mmol/L (98-107); Cholesterol 157 mg/dL (< 200); HDL Cholesterol 44 mg/dL (40-59); LDL Cholesterol 93 mg/dL (< 100); Potassium 4.5 mmol/L (3.5-5.1); Sodium 142 mmol/L (136-145); Total Protein 7.7 g/dL (5.7-8.2)
[2025-03-20 11:36] LABS: Blood Urea Nitrogen 8 mg/dL (9-23); Glucose 152 mg/dL (74-106); Triglycerides 190 mg/dL (< 150)
== END 2025-03-20 17:00 | disposition home or self-care (01) ==
LOC: LAB 10:33
PROVIDERS: ATTEND Internal Medicine
DX: I10 Essential (primary) hypertension (principal); E11.49 Type 2 diabetes mellitus with other diabetic neurological complication; Z00.01 Encounter for general adult medical examination with abnormal findings; Z79.899 Other long term (current) drug therapy
CPT/HCPCS: 36415; 80053; 80061; 81001; 82306; 84439; 84443; 85025

== ENCOUNTER → 2025-03-28 | Day surgery (SDC) | payer MEDICAID ==
[2025-03-23 11:10] LABS: Urine Bacteria None Seen /hpf (None Seen)
[2025-03-23 11:17] LABS: Basophils # (auto) 0.1 10 ^3/uL (0-0.2); Basophils % (auto) 1.3 % (0.0-2.0); Eosinophils # (auto) 0.1 10 ^3/uL (0-0.8); Eosinophils % (auto) 1.2 % (0.0-7.0); Hematocrit 43.6 % (41.0-53.0); Hemoglobin 14.6 g/dL (13.5-17.5); Lymphocytes # (auto) 2.9 10 ^3/uL (0.4-5.4); Lymphocytes % (auto) 28.9 % (10.0-50.0); Mean Corpuscular Hemoglobin 28.1 pg (28.0-32.0); Mean Corpuscular Hgb Conc. 33.6 g/dL (32.0-36.0); Mean Corpuscular Volume 83.7 fL (80.0-100.0); Monocytes # (auto) 0.6 10 ^3/uL (0-1.3); Monocytes % (auto) 6.1 % (0.0-12.0); Neutrophils # (auto) 6.2 10 ^3/uL (1.6-8.6); Neutrophils % (auto) 62.5 % (37.0-80.0); Platelet Count (auto) 289 10^3/uL (140-450); Red Blood Cells 5.21 10^6/uL (4.5-5.90); Red Cell Distribution Width 15.2 % (11.8-14.3); White Blood Cell 9.9 10^3/uL (4.4-10.8)
[2025-03-23 11:23] LABS: Urine Blood Negative /uL (Negative); Urine Clarity Clear (Clear); Urine Color Yellow (Yellow); Urine Protein, UAD Negative (Negative); Urine Specific Gravity 1.022 (1.001-1.035); Urine Squamous Epithelial Cell FEW /hpf (<5); Urine Urobilinogen Normal (Negative); Urine WBC 4 /HPF (0-3); Urine pH 5.5 (5.0-9.0)
[2025-03-23 11:29] LABS: INR 0.97 (0.9-1.15); Partial Thromboplastin Time 25.1 SEC (24.5-34.5); Prothrombin Time 10.3 sec (9.3-11.8)
[2025-03-23 12:21] LABS: Alanine Aminotransferase 17 U/L (7-40); Albumin 4.5 g/dL (3.2-4.8); Alkaline Phosphatase 56 U/L (46-116); Anion Gap 10 (5-15); Aspartate Aminotransferase 25 U/L (0-34); BUN/Creatinine Ratio 12.5 (10.0-20.0); Bilirubin, Total 0.4 mg/dL (0.2-1.0); Blood Urea Nitrogen 10 mg/dL (9-23); Carbon Dioxide 27 mmol/L (20-31); Chloride 103 mmol/L (98-107); Glucose 158 mg/dL (74-106); Potassium 4.4 mmol/L (3.5-5.1); Sodium 140 mmol/L (136-145)
[~2025-03-28] VITALS: Ht 152.4 cm; Wt 172.4 kg
[~2025-03-28] MED LIST changes: +ACETAMINOPHEN IV 1000 MG/100ML (10MG/ML) IV PRN; -BUME1TAB28 PO; +CIPROFLOXACIN 400MG/200ML 200 ML IV ONE; +GABA-1308 PO; +HYDROmorphone HCL 2 MG/ML VL/or syr IV PRN; +HYDROmorphone HCL 2 MG/ML VL/or syr ONE; -LEVO500T31 PO; +LOSA-533 PO; +MEPERIDINE HCL (25 MG/ML) 1ML VIAL IV PRN; -METF-370 PO; +ONDANSETRON HCL 4 MG/2 ML VIAL IV ONE; -POTA-220 PO; +PROPOFOL 10 MG/ML 20 ML IV ONE; +SEMA2INJ3 SC; -TAMS-35 PO; +ceFAZolin 2 GM/D5W50ml 0 ML IV ONE; +fentaNYL CITRATE 100 MCG/2 ML VL ONE
[2025-03-28 09:40] VITALS: PULSE 91; RESP 20; O2SAT 94
--- NOTE | 2025-03-28 09:48 | DVHNC2 ---
Procedure - OPERATIVE REPORT Pre-op. Diagnosis: BPH with Obstruction Nocturia Morbid obesity Post-op. Diagnosis: Same as pre-op diagnosis Operation: Urolift - Prostate Implant Anesthesia: General Indications: Patient suffers from obstructive voiding dysfunction. Treatment options were discussed including ongoing therapy with pharmaceutical such as alpha blocking agents (Flomax/UroXatral/Rapaflow), or Prostate shrinking agents (proscar/Av odart); In-office prostate therapies (TUMT/Indigo Laser/TUNA); or Outpatient procedures such as Green light laser photovaporization/Enucleation/TURP) as well urolift. Corresponding advantages and disadvantages were also discussed. Questions were addressed. Complication include but nt limited to infection, bleeding, damage to the surrounding structures, ejaculatory dysfunction, erectile dysfunction, need for secondary procedures were discussed. Informed consent was obtained. Details of Procedure: Patient was brought to the operating room. After administration of anesthesia, he was placed in the lithotomy position. The area of genitalia was prepped and draped in standard surgical and sterile fashion. The 20 F access sheath was introduced into the bladder under direct vision. Bladder was emptied and the Urolift device was introduced. Six implants were permanently placed at the 10, 2 ,3 and 9 O'clock positions near the bladder neck and apical tissue to lift the kissing lateral lobes out of the way and to create a channel in the prostatic urethra and the urethral bladder neck opening. The implants were delivered through a needle that comes out of the Urolift delivery device and into the prostate. Patient tolerated the procedure well. He was awaken and taken to RR in stable condition. All instrument counts were correct at the end of the procedure. Specimens: None Complications: None ALLISON CAMPOS MD Mar 28, 2025 09:48
--- NOTE | 2025-03-28 09:49 | DVHDS2 ---
New Physician D'charge PN Admitting Diagnosis Admitting Diagnosis BPH Nocturia Obesity Discharge Diagnosis Same Operations or Procedures UroLift prostate implantation Reason(s) For Hospitalization Surgery Treatment Plan Discharge Condition of Discharge Good Disposition Home Discharge Instructions Diet: Regular Activity: Light activity Activity comment: As tolerated Medications: Given Follow Up Care Follow Up/Referral: Two weeks Discharge Statement: "Patient was advised to return to the ER or call 911 if any headaches, dizziness, shortness of breath, chest pain, abdominal pain, bleeding, fevers, or worsening of medical condition. Patient was counseled about treatment plan, medications, possible side effects, patientverbalized understanding. All questions were answered to the best of my ability. This discharge took greater then 30 minutes in planning, reviewing documentation, counseling the patient, and discussing with other team members." ALLISON CAMPOS MD Mar 28, 2025 09:49
[2025-03-28 09:55] VITALS: PULSE 89; RESP 18; O2SAT 95
[2025-03-28 10:00] VITALS: PULSE 81; RESP 18; O2SAT 94
[2025-03-28 10:20] VITALS: BP 108/78; PULSE 82; RESP 18; O2SAT 94
== END | disposition home or self-care (01) ==
LOC: SUR 07:45
PROVIDERS: ATTEND Urology
DX: N40.1 Benign prostatic hyperplasia with lower urinary tract symptoms (principal); N13.8 Other obstructive and reflux uropathy; I10 Essential (primary) hypertension; E11.9 Type 2 diabetes mellitus without complications; G47.30 Sleep apnea, unspecified; E66.01 Morbid (severe) obesity due to excess calories; Z68.45 Body mass index [BMI] 70 or greater, adult; Z88.0 Allergy status to penicillin
CPT/HCPCS: 36415; 52441; 52442; 80053; 81001; 82962; 85025; 85610; 85730; 87086; 87088; 87186; C1769; J0744; J1171; J2704; J3010; L8699

== ENCOUNTER 2025-03-29 11:07 | Emergency (ER) | payer MEDICAID ==
[~2025-03-29] VITALS: Ht 170.2 cm; Wt 173.3 kg
[~2025-03-29 11:07] MED LIST changes: -ACETAMINOPHEN IV 1000 MG/100ML (10MG/ML) IV PRN; -CIPROFLOXACIN 400MG/200ML 200 ML IV ONE; -HYDROmorphone HCL 2 MG/ML VL/or syr IV PRN; -HYDROmorphone HCL 2 MG/ML VL/or syr ONE; -MEPERIDINE HCL (25 MG/ML) 1ML VIAL IV PRN; -ONDANSETRON HCL 4 MG/2 ML VIAL IV ONE; -PROPOFOL 10 MG/ML 20 ML IV ONE; -ceFAZolin 2 GM/D5W50ml 0 ML IV ONE; -fentaNYL CITRATE 100 MCG/2 ML VL ONE
[2025-03-29 11:30] VITALS: PULSE 97; RESP 15; TEMP 97.9; O2SAT 95
--- NOTE | 2025-03-29 11:31 | ED.PDOC ---
General HPI Comments 54 y.o male presents to the ED for a chief complaint of urinary retention s/p Urolift x 1 day ago. Patient had sx done by Dr. Fink with no complications, bleeding, discharge, fever or chills s/p d/c. Patient denies any hematuria or abdominal pain. Chief Complaint: Urinary Time Seen by MD: 11:20 Primary Care Provider: UNKNOWN Reviewed notes: Nurses Notes, Medications, Allergies Allergies: Coded Allergies: Penicillins (Verified Allergy, Unknown, 08/14/20) Home Meds Active Scripts Tramadol Hcl (Tramadol Hcl) 50 Mg Tab, 50 MG PO QID PRN, #30 TAB Prov:ELISABET CROSS MD 01/06/24 Aspirin (Aspir-81) 81 Mg Tab, 81 MG PO DAILY, #30 MG Prov:SANDEE RIVERA MD 08/29/20 Reported Medications Semaglutide (Ozempic) Unknown Strength Inj, SC QWEEKLY, INJ 03/23/25 Gabapentin (Gabapentin) 100 Mg Cap, PO, CAP 03/23/25 Losartan Potassium (Losartan Potassium) 25 Mg Tab, 25 MG PO DAILY, TAB 03/23/25 Ergocalciferol (Vitamin D) 50,000 Unit Cap, 1 CAP PO QWEEKLY 01/01/24 Metformin Hydrochloride (Glumetza) 1,000 Mg Tab, 1000 MG PO BID, TAB 01/01/24 Glipizide (Glipizide) 5 Mg Tab, 5 MG PO DAILY for 30 Days, MG 07/31/22 Information Source: Patient Mode of Arrival: Ambulatory Severity: Moderate Inability to void: None Timing: Days (1) Duration: Since onset Onset: Spontaneous Symptoms: Inability to void History of: Other Location: None associated signs and symptoms: Inability to Void Past Medical History PAST MEDICAL HISTORY: DM Surgical History (Other): Urolift Family History Family History: Reviewed,noncontributory to illness, Family hx of HTN Social History Smoker: Non-Smoker Alcohol: Denies ETOH Use Drugs: Denies Drug Use Lives In: Home Constitutional: denies: chills, diaphoresis, fatigue, fever, malaise, sweats, weakness, others EENTM: denies: blurred vision, double vision, ear bleeding, ear discharge, ear drainage, ear pain, ear ringing, eye pain, eye redness, hearing loss, mouth pain, mouth swelling, nasal discharge, nose bleeding, nose congestion, nose pain, photophobia, tearing, throat pain, throat swelling, voice changes, others Respiratory: denies: cough, hemoptysis, orthopnea, SOB at rest, shortness of breath, SOB with excertion, stridor, wheezing, others Cardiovascular: denies: chest pain, dizzy spells, diaphoresis, Dyspnea on exertion, edema, irregular heart beat, left arm pain, lightheadedness, palpitat ions, PND, syncope, others Gastrointestinal: denies: abdomen distended, abdominal pain, blood streaked bow els, constipated, diarrhea, dysphagia, difficulty swallowing, hematemesis, melena, nausea, poor appetite, poor fluid intake, rectal bleeding, rectal pain, vomiting, others Genitourinary: reports: others (UA retention ); denies: burning, dysuria, flank pain, frequency, hematuria, incontinence, penile discharge, penile sore, pain, testicle pain, testicle swelling, urgency Neurological: denies: dizziness, fainting, headache, left sided numbness, left sided weakness, numbness, paresthesia, pre-existing deficit, right sided numbness, right sided weakness, seizure, speech problems, tingling, tremors, weakness, others Musculoskeletal: denies: back pain, gout, joint pain, joint swelling, muscle pain, muscle stiffness, neck pain, others Integumetry: denies: bruises, change in color, change in hair/nails, dryness, laceration, lesions, lumps, rash, wounds, others Allergic/Immunocompromised: denies: Difficulty Healing, Frequent Infections, Hives, Itching, others Hematologic/Lymphatic: denies: anemia, blood clots, easy bleeding, easy bruising, swollen glands, others Endocrine: denies: excessive hunger, excessive sweating, excessive thirst, excessive urination, flushing, intolerance to cold, intolerance to heat, unexplained weight gain, unexplained weight loss, others Psychiatric: denies: anxiety, bipolar disorder, depression, hopeless, panic disorder, schizophrenia, sleepless, suicidal, others All Other Systems: Reviewed and Negative Physical Exam General Appearance: No Apparent Distress, Normal HEENT: Normal ENT Inspection, Pharynx Normal, TMs Normal Neck: Full Range of Motion, Non-Tender, Normal, Normal Inspection Respiratory: Chest Non-Tender, Lungs Clear, No Accessory Muscle Use, No Respiratory Distress, Normal Breath Sounds Cardiovascular: No Edema, No JVD, No Murmur, No Gallop, Normal Peripheral Pulses, Regular Rate/Rhythm Breast Exam: Deferred Gastrointestinal: No Organomegaly, Non Tender, No Pulsatile Mass, Normal Bowel Sounds, Soft Genitalia: Deferred Pelvic: Deferred Rectal: Deferred Extremities: No calf tenderness, Normal capillary refill, Normal inspection, Normal range of motion, Non-tender, No pedal edema Musculoskeletal : Apperance: Normal Neurologic: Alert, adult care provider II-XII nml as Tested, No Motor Deficits, Normal Affect, Normal Mood, No Sensory Deficits Cerebellar Function: Normal Reflexes: Normal Skin: Dry, Normal Color, Warm Lymphatic: No Adenopathy Was a procedure done? Was a procedure done?: No Differential Diagnosis Kidney stone (Female): N/A Urinary Problem (Male): Bladder Outlet, Bladder Obstruction, Post op Complications, Urinary Retention, Urolithiasis X-Ray, Labs, Meds, VS Vital Signs Date Time Temp Pulse Resp B/P (MAP) Pulse Ox O2 Delivery O2 Flow Rate FiO2 03/29/25 13:18 90 12 119/71 03/29/25 13:00 90 12 119/71 (87) 93 03/29/25 12:48 93 12 121/81 03/29/25 12:30 93 13 121/81 (94) 94 03/29/25 12:00 89 03/29/25 11:30 97.9 97 15 122/72 (89) 95 97.9 03/29/25 11:30 97 15 95 Room Air* 0 21 03/29/25 11:15 98.6 96 24 104/83 (90) 95 98.6 Lab Test 03/29/25 11:34 03/29/25 11:17 Range/Units White Blood Count 10.6 4.4-10.8 10^3/uL Red Blood Count 5.14 4.5-5.90 10^6/uL Hemoglobin 14.3 13.5-17.5 g/dL Hematocrit 42.8 41.0-53.0 % Mean Corpuscular Volume 83.4 80.0-100.0 fL Mean Corpuscular Hemoglobin 27.9 L 28.0-32.0 pg Mean Corpuscular Hemoglobin Concent 33.5 32.0-36.0 g/dL Red Cell Distribution Width 15.0 H 11.8-14.3 % Platelet Count 279 140-450 10^3/uL Mean Platelet Volume 7.1 6.9-10.8 fL Neutrophils (%) (Auto) 74.4 37.0-80.0 % Lymphocytes (%) (Auto) 18.9 10.0-50.0 % Monocytes (%) (Auto) 5.7 0.0-12.0 % Eosinophils (%) (Auto) 0.4 0.0-7.0 % Basophils (%) (Auto) 0.6 0.0-2.0 % Neutrophils # (Auto) 7.9 1.6-8.6 10 ^3/uL Lymphocytes # (Auto) 2.0 0.4-5.4 10 ^3/uL Monocytes # (Auto) 0.6 0-1.3 10 ^3/uL Eosinophils # (Auto) 0 0-0.8 10 ^3/uL Basophils # (Auto) 0.1 0-0.2 10 ^3/uL Nucleated Red Blood Cells 0.1 % Sodium Level 137 136-145 mmol/L Potassium Level 3.9 3.5-5.1 mmol/L Chloride Level 101 98-107 mmol/L Carbon Dioxide Level 23 20-31 mmol/L Anion Gap 13 5-15 Blood Urea Nitrogen 9 9-23 mg/dL Creatinine 0.79 0.700-1.30 mg/dL Glomerular Filtration Rate Calc 106 >90 mL/min BUN/Creatinine Ratio 11.4 10.0-20.0 Serum Glucose 191 H 74-106 mg/dL Calcium Level 9.5 8.7-10.4 mg/dL POC Glucose 210 H 70-106 mg/dl Current Medications Medications (Trade) Dose Ordered Sig/Emily Route Start Time Stop Time Status Last Admin Morphine Sulfate 4 mg ONCE ONCE IV 03/29/25 12:45 03/29/25 12:46 DC 03/29/25 12:48 Ondansetron HCl (Zofran) 4 mg ONCE ONCE IV 03/29/25 12:45 03/29/25 12:46 DC 03/29/25 12:47 Time of 1ST Reevaluation: 11:30 Reevaluation 1ST: Unchanged Patient Education/Counseling: Diagnosis, Treatment, Prognosis Family Education/Counseling: No Family Present SEPSIS Sepsis Screen Orders/Vitals/Labs Physician Orders * Urology Consult (03/29/25 11:26) Vital Signs Date Time Temp Pulse Resp B/P (MAP) Pulse Ox O2 Delivery O2 Flow Rate FiO2 03/29/25 13:18 90 12 119/71 03/29/25 13:00 90 12 119/71 (87) 93 03/29/25 12:48 93 12 121/81 03/29/25 12:30 93 13 121/81 (94) 94 03/29/25 12:00 89 03/29/25 11:30 97.9 97 15 122/72 (89) 95 97.9 03/29/25 11:30 97 15 95 Room Air* 0 21 03/29/25 11:15 98.6 96 24 104/83 (90) 95 98.6 Laboratory Tests Test 03/29/25 11:34 White Blood Count 10.6 10^3/uL (4.4-10.8) Medications Medications Dose Ordered Sig/Emily Route Start Time Stop Time Status Last Admin Dose Admin Morphine Sulfate 4 mg ONCE ONCE IV 03/29/25 12:45 03/29/25 12:46 DC 03/29/25 12:48 Ondansetron HCl 4 mg ONCE ONCE IV 03/29/25 12:45 03/29/25 12:46 DC 03/29/25 12:47 Departure 1 Departure Time of Disposition: 13:53 (Patient had a malfunctioning West. Discussed the case with Dr. Ellison who recommended flushing it. We will discharge patient home with outpatient follow up) Impression: Primary Impression: Acute urinary retention Disposition: 01 HOME / SELF CARE / HOMELESS Condition: Stable Referrals: ALLISON FINK MD Additional Instructions: It is important to follow up with Dr. Fink tomorrow. Discharged With: Self Critical Care Note Critical Care Time?: No Stability Stability form required: No I personally scribed for REGINALD PANTOJA MD ([email or web address]) on 03/29/25 at 11:31. Electronically submitted by Sonia Rowe ([facility]). REGINALD PANTOJA MD Mar 29, 2025 11:31
[2025-03-29 11:56] LABS: Basophils # (auto) 0.1 10 ^3/uL (0-0.2); Basophils % (auto) 0.6 % (0.0-2.0); Eosinophils # (auto) 0 10 ^3/uL (0-0.8); Eosinophils % (auto) 0.4 % (0.0-7.0); Hematocrit 42.8 % (41.0-53.0); Hemoglobin 14.3 g/dL (13.5-17.5); Lymphocytes % (auto) 18.9 % (10.0-50.0); Mean Corpuscular Hemoglobin 27.9 pg (28.0-32.0); Mean Corpuscular Hgb Conc. 33.5 g/dL (32.0-36.0); Mean Corpuscular Volume 83.4 fL (80.0-100.0); Monocytes # (auto) 0.6 10 ^3/uL (0-1.3); Monocytes % (auto) 5.7 % (0.0-12.0); Neutrophils # (auto) 7.9 10 ^3/uL (1.6-8.6); Neutrophils % (auto) 74.4 % (37.0-80.0); Nucleated Red Blood Cells % 0.1 %; Platelet Count (auto) 279 10^3/uL (140-450); Red Blood Cells 5.14 10^6/uL (4.5-5.90); White Blood Cell 10.6 10^3/uL (4.4-10.8)
[2025-03-29 12:01] LABS: Calcium 9.5 mg/dL (8.7-10.4); Chloride 101 mmol/L (98-107); Potassium 3.9 mmol/L (3.5-5.1); Sodium 137 mmol/L (136-145)
[2025-03-29 12:02] LABS: Anion Gap 13 (5-15); Carbon Dioxide 23 mmol/L (20-31)
[2025-03-29 12:07] LABS: BUN/Creatinine Ratio 11.4 (10.0-20.0)
[2025-03-29 12:08] LABS: Blood Urea Nitrogen 9 mg/dL (9-23); Glucose 191 mg/dL (74-106)
--- NOTE | 2025-03-29 12:36 | DVHINCON2 ---
Date of service: Mar 29, 2025 Referring Physician ER Reason for Consultation 03/29/2025 12:33 AM PDT Allison Fink > Patient came to [facility] clinic in the afternoon and West catheter was placed with over 1 L urine returned. He was to follow up tomorrow in clinic for West removal. Now, he is in ER because catheter is not draining. I asked the nurse Luisa to irrigate the catheter and still have him follow up tomorrow as planned. Family History: Acute respiratory failure G8 MOTHER, Cardiovascular disease G8 MOTHER, Diabetes mellitus G8 FATHER Hypertension G8 FATHER Allergies: Coded Allergies: Penicillins (Verified Allergy, Unknown, 08/14/20) Home Meds Active Scripts Tramadol Hcl (Tramadol Hcl) 50 Mg Tab, 50 MG PO QID PRN, #30 TAB Prov:ELISABET CROSS MD 01/06/24 Aspirin (Aspir-81) 81 Mg Tab, 81 MG PO DAILY, #30 MG Prov:SANDEE RIVERA MD 08/29/20 Reported Medications Semaglutide (Ozempic) Unknown Strength Inj, SC QWEEKLY, INJ 03/23/25 Gabapentin (Gabapentin) 100 Mg Cap, PO, CAP 03/23/25 Losartan Potassium (Losartan Potassium) 25 Mg Tab, 25 MG PO DAILY, TAB 03/23/25 Ergocalciferol (Vitamin D) 50,000 Unit Cap, 1 CAP PO QWEEKLY 01/01/24 Metformin Hydrochloride (Glumetza) 1,000 Mg Tab, 1000 MG PO BID, TAB 01/01/24 Glipizide (Glipizide) 5 Mg Tab, 5 MG PO DAILY for 30 Days, MG 07/31/22 Vital Signs Vital Signs Date Time Temp Pulse Resp B/P (MAP) Pulse Ox O2 Delivery O2 Flow Rate FiO2 03/29/25 12:00 89 03/29/25 11:30 97.9 15 122/72 (89) 95 97.9 03/29/25 11:30 Room Air* 0 21 Labs/Diagnostic Data Labs Test 03/29/25 11:34 03/29/25 11:17 Range/Units White Blood Count 10.6 4.4-10.8 10^3/uL Red Blood Count 5.14 4.5-5.90 10^6/uL Hemoglobin 14.3 13.5-17.5 g/dL Hematocrit 42.8 41.0-53.0 % Mean Corpuscular Volume 83.4 80.0-100.0 fL Mean Corpuscular Hemoglobin 27.9 L 28.0-32.0 pg Mean Corpuscular Hemoglobin Concent 33.5 32.0-36.0 g/dL Red Cell Distribution Width 15.0 H 11.8-14.3 % Platelet Count 279 140-450 10^3/uL Mean Platelet Volume 7.1 6.9-10.8 fL Neutrophils (%) (Auto) 74.4 37.0-80.0 % Lymphocytes (%) (Auto) 18.9 10.0-50.0 % Monocytes (%) (Auto) 5.7 0.0-12.0 % Eosinophils (%) (Auto) 0.4 0.0-7.0 % Basophils (%) (Auto) 0.6 0.0-2.0 % Neutrophils # (Auto) 7.9 1.6-8.6 10 ^3/uL Lymphocytes # (Auto) 2.0 0.4-5.4 10 ^3/uL Monocytes # (Auto) 0.6 0-1.3 10 ^3/uL Eosinophils # (Auto) 0 0-0.8 10 ^3/uL Basophils # (Auto) 0.1 0-0.2 10 ^3/uL Nucleated Red Blood Cells 0.1 % Sodium Level 137 136-145 mmol/L Potassium Level 3.9 3.5-5.1 mmol/L Chloride Level 101 98-107 mmol/L Carbon Dioxide Level 23 20-31 mmol/L Anion Gap 13 5-15 Blood Urea Nitrogen 9 9-23 mg/dL Creatinine 0.79 0.700-1.30 mg/dL Glomerular Filtration Rate Calc 106 >90 mL/min BUN/Creatinine Ratio 11.4 10.0-20.0 Serum Glucose 191 H 74-106 mg/dL Calcium Level 9.5 8.7-10.4 mg/dL POC Glucose 210 H 70-106 mg/dl Plan discussed with: Other (Luisa PENA at [facility]) ALLISON FINK MD Mar 29, 2025 12:36
[2025-03-29] MEDS: ONDANSETRON HCL 4 MG/2 ML VIAL IV ONE (12:47)
[2025-03-29] MEDS: MORPHINE SULFATE 4 MG/ML SYR/VIAL IV ONE (12:48)
[2025-03-29 13:58] VITALS: BP 103/53; PULSE 85; RESP 16; O2SAT 94
== END 2025-03-29 14:03 | disposition home or self-care (01) ==
LOC: ER 11:07
DX: R33.9 Retention of urine, unspecified (principal); E11.9 Type 2 diabetes mellitus without complications; Z88.0 Allergy status to penicillin; Z79.899 Other long term (current) drug therapy; Z79.85 Long-term (current) use of injectable non-insulin antidiabetic drugs; Z79.84 Long term (current) use of oral hypoglycemic drugs; Z79.82 Long term (current) use of aspirin; Z87.448 Personal history of other diseases of urinary system
CPT/HCPCS: 36415; 51702; 80048; 82947; 85025; 96374; 96375; 99285; J2270; J2405; 82962

== ENCOUNTER 2025-03-29 18:51 | Emergency (ER) | payer MEDICAID ==
[~2025-03-29] VITALS: Ht 167.6 cm; Wt 172.0 kg
--- NOTE | 2025-03-29 19:38 | ED.PDOC ---
History of Present Illness HPI Comments 54 y/o M, presents to the ED for CC of tube replacement. Patient states, he had a Guan catheter placed at 1300 today ( d/t inability to void following, UroLift yesterday (03/28/25). Patient relays, upon initial use of Guan Catheter 800mL of urine were collected. Patient complains of current pain to penile shaft with associated abdominal discomfort. No other symptoms or modifying factors present at this time. Chief Complaint: Urinary Time Seen by MD: 19:40 Primary Care Provider: CARIN Reviewed Notes: Nurses Notes, Medications, Allergies Allergies: Coded Allergies: Penicillins (Verified Allergy, Unknown, 08/14/20) Home Meds Active Scripts Tramadol Hcl (Tramadol Hcl) 50 Mg Tab, 50 MG PO QID PRN, #30 TAB Prov:ELISABET CROSS MD 01/06/24 Aspirin (Aspir-81) 81 Mg Tab, 81 MG PO DAILY, #30 MG Prov:SANDEE RIVERA MD 08/29/20 Reported Medications Semaglutide (Ozempic) Unknown Strength Inj, SC QWEEKLY, INJ 03/23/25 Gabapentin (Gabapentin) 100 Mg Cap, PO, CAP 03/23/25 Losartan Potassium (Losartan Potassium) 25 Mg Tab, 25 MG PO DAILY, TAB 03/23/25 Ergocalciferol (Vitamin D) 50,000 Unit Cap, 1 CAP PO QWEEKLY 01/01/24 Metformin Hydrochloride (Glumetza) 1,000 Mg Tab, 1000 MG PO BID, TAB 01/01/24 Glipizide (Glipizide) 5 Mg Tab, 5 MG PO DAILY for 30 Days, MG 07/31/22 Information Source: Patient Mode of Arrival: Ambulatory Severity: Moderate Timing: Hours Duration: Since onset Past Medical History PAST MEDICAL HISTORY: DM Family History Family History: Reviewed,noncontributory to illness, Family hx of HTN Social History Smoker: Non-Smoker Alcohol: Denies ETOH Use Drugs: Denies Drug Use Lives In: Home Constitutional: denies: chills, diaphoresis, fatigue, fever, malaise, sweats, weakness, others EENTM: denies: blurred vision, double vision, ear bleeding, ear discharge, ear drainage, ear pain, ear ringing, eye pain, eye redness, hearing loss, mouth pain, mouth swelling, nasal discharge, nose bleeding, nose congestion, nose pain, photophobia, tearing, throat pain, throat swelling, voice changes, others Respiratory: denies: cough, hemoptysis, orthopnea, SOB at rest, shortness of breath, SOB with excertion, stridor, wheezing, others Cardiovascular: denies: chest pain, dizzy spells, diaphoresis, Dyspnea on exertion, edema, irregular heart beat, left arm pain, lightheadedness, palpitations, PND, syncope, others Gastrointestinal: denies: abdomen distended, abdominal pain, blood streaked bowels, constipated, diarrhea, dysphagia, difficulty swallowing, hematemesis, melena, nausea, poor appetite, poor fluid intake, rectal bleeding, rectal pain, vomiting, others Genitourinary: denies: burning, dysuria, flank pain, frequency, hematuria, incontinence, penile discharge, penile sore, pain, testicle pain, testicle swelling, urgency, others Neurological: denies: dizziness, fainting, headache, left sided numbness, left sided weakness, numbness, paresthesia, pre-existing deficit, right sided numbness, right sided weakness, seizure, speech problems, tingling, tremors, weakness, others Musculoskeletal: denies: back pain, gout, joint pain, joint swelling, muscle pain, muscle stiffness, neck pain, others Integumetry: denies: bruises, change in color, change in hair/nails, dryness, laceration, lesions, lumps, rash, wounds, others Allergic/Immunocompromised: denies: Difficulty Healing, Frequent Infections, Hives, Itching, others Hematologic/Lymphatic: denies: anemia, blood clots, easy bleeding, easy bruising, swollen glands, others Endocrine: denies: excessive hunger, excessive sweating, excessive thirst, excessive urination, flushing, intolerance to cold, intolerance to heat, unexplained weight gain, unexplained weight loss, others Psychiatric: denies: anxiety, bipolar disorder, depression, hopeless, panic disorder, schizophrenia, sleepless, suicidal, others All Other Systems: Reviewed and Negative Physical Exam General Appearance: Mild Distress, Normal HEENT: Normal ENT Inspection, Pharynx Normal, TMs Normal Neck: Full Range of Motion, Non-Tender, Normal, Normal Inspection Respiratory: Chest Non-Tender, Lungs Clear, No Accessory Muscle Use, No Respiratory Distress, Normal Breath Sounds Cardiovascular: No Edema, No JVD, No Murmur, No Gallop, Normal Peripheral Pulses, Regular Rate/Rhythm Breast Exam: Deferred Gastrointestinal: Diffuse, No Organomegaly, No Pulsatile Mass, Normal Bowel Sounds, Tenderness Genitalia: Deferred Pelvic: Deferred Rectal: Deferred Extremities: No calf tenderness, Normal capillary refill, Normal inspection, Normal range of motion, Non-tender, No pedal edema Musculoskeletal : Apperance: Normal Neurologic: Alert, customer care coordinator II-XII nml as Tested, No Motor Deficits, Normal Affect, Normal Mood, No Sensory Deficits Cerebellar Function: Normal Reflexes: Normal Skin: Dry, Normal Color, Warm Lymphatic: No Adenopathy Was a procedure done? Was a procedure done?: No Differential Dx Considerations may include: GUAN CATHETER REPLACEMENT X-Ray, Labs, Meds, VS Vital Signs Date Time Temp Pulse Resp B/P (MAP) Pulse Ox O2 Delivery O2 Flow Rate FiO2 03/29/25 19:29 97.9 104 20 137/96 (110) 94 97.9 X-Ray, Labs, Meds, VS Comment Guan catheter irrigated with 650 cc drained from bladder. Patient reports good symptom relief. Patient has follow up with Dr. English tomorrow morning. Time of 1ST Reevaluation: 20:10 Reevaluation 1ST: Unchanged Patient Education/Counseling: Diagnosis, Treatment, Need For Follow Up (Follow up with Dr. Ellison, urologist tomorrow) Family Education/Counseling: No Family Present SEPSIS Sepsis Screen Date sepsis recognized/suspect: Mar 29, 2025 Time Sepsis recognized/suspect: 1920 Recent Procedure: No On Antibiotic Therapy: No Respiratory Rate >20: No Heart Rate >90: No Temp<36 C (96.8 F) or >38.3 C: No SBP <90 or MAP <65 mmHG: No New Acute Mental Status Change: No Is the patient on CPAP, BIPAP,: No Vital Signs Date Time Temp Pulse Resp B/P (MAP) Pulse Ox O2 Delivery O2 Flow Rate FiO2 03/29/25 19:29 97.9 104 20 137/96 (110) 94 97.9 Departure 1 Departure Time of Disposition: 22:56 Impression: Primary Impression: Acute urinary retention Disposition: 01 HOME / SELF CARE / HOMELESS Condition: Stable Discharged With: Self Critical Care Note Critical Care Time?: No Stability Stability form required: No I personally scribed for LEDY ARRIAGA ([email or web address]) on 03/29/25 at 19:38. Electronically submitted by Karen Fabian ([email or web address]). I personally scribed for LEDY ARRIAGA ([email or web address]) on 03/29/25 at 19:47. Electronically submitted by Karen Fabian ([email or web address]). LEDY ARRIAGA Mar 29, 2025 19:38
[2025-03-29 22:59] VITALS: RESP 12
[2025-03-29 23:01] VITALS: BP 127/81; PULSE 91; RESP 18; TEMP 98.5; O2SAT 96
== END 2025-03-29 23:12 | disposition home or self-care (01) ==
LOC: ER 18:51
DX: R33.9 Retention of urine, unspecified (principal); E11.9 Type 2 diabetes mellitus without complications; Z88.0 Allergy status to penicillin; Z79.899 Other long term (current) drug therapy; Z79.85 Long-term (current) use of injectable non-insulin antidiabetic drugs; Z79.84 Long term (current) use of oral hypoglycemic drugs; Z79.82 Long term (current) use of aspirin